=== PATIENT | female | born 1960 | race Caucasian/White ===

== ENCOUNTER 2025-07-11 08:47 | Outpatient (OUT) | payer BC, SELFPAY ==
--- OUTSIDE RECORDS SUMMARY | 2025-07-03 11:30 | XMS_ITS | Encounter Summary ---
Author Organization [facility] Address [address] [place] [id number] Care Team Providers Care Shipboard Intelligence Analyst Name Role Phone MalcolmArron streeter Edgar NEGRON Primary Care Provider [phone] Peggy Perez MD Unavailable [phone] Radha Perez HSE SPECIALIST Unavailable Unavailable Josefina Perdue PROPERTY ECONOMIST.CAMPAIGN MANAGEMENT SPECIALIST Unavailable Unavai Alona Tran RN Unavailable [phone] Unavailable [phone] Giovany Killian RN Unavailable Unava ilSarita Vallejo PROPERTY ECONOMIST.CAMPAIGN MANAGEMENT SPECIALIST Unavailable + Source Comments In the event this information is protected by the Federal Confidentiality of Alcohol and Drug AbusePatient Records regulations: The Federal rules restrict any use of the information to criminally investigate or prosecute any alcohol or drug abuse patient.[facility] Reason for Visit * Reason Comments Palliative Care Pain Encounter Details Date Type Department Care Team (Latest Contact Info) Description 07/03/2025 11:30 AM EDT Office Visit Palliative Medicine [address] [place] [address] [place] [address] Sarita Barrera, NO.CAMPAIGN MANAGEMENT SPECIALIST [address] [place] [address] Palliative care by specialist (Primary Dx); Neuropathy due to chemotherapeutic drug (HCC); Neoplasm related pain; Endometrial cancer (HCC); Chemotherapy-induced nausea; Pain in right hip Social History Tobacco Use Types Packs/Day Years Used Date Smoking Tobacco: Former Cigarettes 0.3 10 1 995 - 2004 Smokeless Tobacco: Never Tobacco Cessation:Counseling Given: Not Answered Alcohol Use Standard Drinks/Week Comments Not Currently 0 (1 standard drink = 0.6 oz pur e alcohol) PHQ-2 Answer Date Recorded PHQ-2 score 0 12/11/2022 Area Deprivation Index Answer Date Paco rded National Score (1-100), lower number is lower ri sk 53 02/18/2023 State Score (1-10), lower number is lower risk 3 02/18/2023 Data from: https://www.neighborhoodatlas.[facility]/. Last address used for calculation [id number] [facility] 02/18/2023 Comments No Sex and Gender Information Value Date Recorded Sex Assigned at Not on file Legal Sex Female 8:38 AM EST Gender Identity Not on file Sexual Orientation Not on file documented as of this encounter Last Filed Vital Signs Vital Sign Reading Time Taken Comments Blood Pressure 145/82 07/03/2025 11:27 AM EDT Pulse 63 07/03/2025 11:27 AM EDT Temperature 36.6 C (97.8 F) 07/03/2025 11:27 AM EDT Respiratory Rate 16 07/03/2025 11:2 7 AM EDT Oxygen Saturation 97% 07/03/2025 11: 27 AM EDT Inhaled Oxygen Concentration - - Weight 130.5 kg (287 lb 11.2 oz) 2024 11:27 AM EDT Height - - Body Mass Index 41.47 05/30/2025 10:39 AM EDT documented in this encounter Patient Instructions * Patient Instructions* Sarita Barrera APRN.CAMPAIGN MANAGEMENT SPECIALIST - 07/03/2025 11:50 AM EDT Sarita Barrera CNP Department of Palliative and Supportive Care Palliative Care - Specialty services in symptom management and support For questions or prescription refills, call: [phone] Wednesday - Wednesday 9AM-5PM KELLE Aaron, RN - Parts Picker Please call 3-5 days in advance for medication refills Evenings, Weekends, Holidays: [phone] (ask for palliative medicine on-call provider) For appointments, cancellations or reschedule, call: [phone] documented in this encounter Progress Notes * Sarita Barrera APRN.CNP - 07/03/2025 11:30 AM EDT PALLIATIVE MEDICINE PROGRESS NOTE SERVICE DATE: July 03, 2025 IDENTIFICATION AND INTRODUCTION: Rizwana Ruiz is a 64 year old female This visit took place In Ambulatory [facility] Facility Recording using [employer] software for draft documentation of the visit was discussed with the patient/authorized account retention representative; all questions welcomed and answered. Patient/authorized account retention representative agreed to proceed CHIEF COMPLAINT: Neoplasm Related Pain PERTINENT MEDICAL HISTORY: Rizwana Ruiz is a 63 year old female with history of trigeminal neuralgia, LSIL pap, and now PMB. Sheunderwent EMB on 09/01/2022 with results significant for grade 1 endometrial cancer. S/P bilateral salpingo-oophorectomy in 202111/04/2024 CT- OSH from ED visit New liver lesion 2cm, new paraaortic lymph nodes, subcm pulmonary nodules progressed since 2022 On Maintenance pembrolizumab C3, imaging 07/05 shows disease progression Subjective Abdominal Pain: - Rizwana Ruiz has cramping abdominal pain, with occasional nausea. - No constipation. - Pain exacerbated by certain positions, particularly side sleeping. - Uses heating pad and Oxycodone 5 mg or 10 mg PRN for pain management. - Taking meloxicam and gabapentin at night. - Concerned about Oxycodone affecting CDL license. Right hip Pain - Injected for OA and bursitis Metastatic Endometrial Cancer: - Cancer is growing again. - Undergoing treatment changes. - Total hysterectomy in the past. Anxiety - understandably upset about cancer progression and effect it has on her life REVIEW OF SYSTEMS: Modified ESAS ([place] Symptom Assessment Scale) Information Provided By: Patient Pain: Moderate Nausea: Mild Loss of Appetite: None Constipation: None Shortness of Breath: None Drowsiness: None Tiredness: None Depression: None Anxiety: Moderate Objective PHYSICAL EXAMINATION: There were no vitals taken for this visit. General Appearance: No apparent distress Skin: No jaundice and No rash Eyes: Normal and No Icterus HENT: Atraumatic and Oropharnyx clear with moist mucous membranes Neck: Grossly normal and No masses Lungs: Normal effort, no cough CV: Not examined Abdomen: Not examined Musculoskeletal: Not examined Lymphatics: Not examined Neuro: Alert and oriented to time place and person Psych: Well groomed, Affect congruent with mood, and Good eye contact DATA: Diagnostic tests reviewed for today's visit: Most recent labs and imaging results. Creatinine Date Value Ref Range Status 06/18/2025 0.87 0.58 - 0.96 mg/dL Final Estimated Creatinine Clearance: 97.7 mL/min (based on SCr of 0.87 mg/dL). Opioid Management: Indication for Opioid Prescribing: Cancer related pain ORT-OUD Score: 2 A score of 3 or higher may indicate a higher risk for future development of aberrant drug related behavior or opioid use disorder. Informed consent for chronic opiate therapy obtained and written pain agreement: On file Naloxone offered?: Previously declined, after discussing risks and benefits Course of treatment, patient's response and adherence to the prescribed treatment plan reviewed, including non-pharmacological and non-opioid treatment modalities? Yes Have any complications or exacerbations of the underlying condition causing the pain been reviewed?Yes How much does pain impede patient???s ability to engage in work or other purposeful activities, interfere with your activities of daily living, physical activity, or quality of your family life and social activities? Significantly Aberrancies in pain panel? No Any aberrant drug related behaviors since last visit? No Rationale for continuing opioid treatment: Improved comfort and function based on an ongoing functional assessment Benefits of Opioid Therapy outweigh risks: Yes Prescribed Morphine Equivalent Daily Dose (MEDD): Yes > 50 MEDD Yes, I am certified in Hospice and Palliative Care, Hematology, Medical Oncology or Pain Medicine OARRS Checked: PDMP website checked and validated. All prescriptions have been APPROPRIATELY filled. No suspiciousactivity was identified. 07/03/2025 by Sarita Barrera, SORTER [employer]UNDR[employer], PROPERTY ECONOMIST.CAMPAIGN MANAGEMENT SPECIALIST Urine Screen Lab Results Component Value Date UAMPH Negative 12/27/2024 UBARB2 Negative 12/27/2024 UBENZ Negative 12/27/2024 UCOC2 Negative 12/27/2024 UOPI Negative 12/27/2024 UOXYC Preliminary positive (A) 12/27/2024 UPCP Negative 12/27/2024 UTHC Negative 12/27/2024 UETOH <11 12/27/2024 Assessment & Plan 1. Palliative care by specialist (Z51.5) - reviewed philosophy and services 2. 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 Endometrial cancer (HCC) (C54.1) - Chronic pain and neuropathy related to endometrial cancer and chemotherapy. - Oxycodone 5 mg and 10 mg available PRN for pain; advised to use as needed. - Increase gabapentin from nightly to TID to reduce reliance on oxycodone. - Continue meloxicam at night. Take with food - Discussed potential impact of oxycodone on random drug testing and advised on PRN use. - Educated on scar tissue formation post-hysterectomy as a possible contributor to pain. 5. Chemotherapy-induced nausea (R11.0) - Occasional nausea reported. 6. Pain in right hip (M25.551) - Recent hip injection performed by Dr. Bass. - Advised to avoid lying on the affected side to prolong injection efficacy. - Continue use of heating pad and ice as needed for comfort. Some elements copied from my note on 04/03/25, the elements have been updated and all reflect current decision making from today, 07/03/2025. I spent a total of 35 minutes on the date of the service which included preparing to see the patient, [id number] patient care, completing clinical documentation, obtaining and/or reviewing separately obtained history, performing a medically appropriate examination, counseling and educating the pat ient/family/caregiver, ordering medications, tests, or procedures, communicating with other HCPs (not separately reported), independently interpreting results (not separately reported), communicatingresults to the patient/family/caregiver, and care coordination (not separately reported). Next Visit: 3 Months via virtual visit Palliative Medicine Nurse to do telephonic follow-up: Yes Elementary Assistant Teacher Services: None at this time Referral to Pointing Machine Operator: No, not at this time Sarita Barrera NP, PROPERTY ECONOMIST.CAMPAIGN MANAGEMENT SPECIALIST July 03, 2025 11:01 AM This note may have been partially generated using the [employer] voice recognition system. While every effort was made to correct voice recognition errors, kindly be aware that some errors may occasionally occur. documented in this encounter Plan of Treatment Upcoming Encounters Date Type Department Care Team ([facility] st Contact Info) Description 07/11/2025 1:30 PM EDT Visit (SP) Office Gynecology Oncology [address] [place] [address] [place] [address] Josefina Perdue APRN.CAMPAIGN MANAGEMENT SPECIALIST [address] [place], [place] [id number] PLEASE RESCHEDULE PALL MED 07/11/2025 2:00 PM EDT Infusion Center Hematology/Oncology [address] [place] [address] [place] [address] follow up keytruda 10/02/2025 2:30 PM [facility] Palliative Medicine [address] [place] [address] [place] [address] Sarita Barrera APRN.CAMPAIGN MANAGEMENT SPECIALIST [address] [place] [address] 3 MONTH VV documented as of this encounter Visit Diagnoses Diagnosis Palliative care by specialist- Primary 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 related pain Neoplasm related pain (acute) (chronic) Endometrial cancer (HCC) Malignant neoplasm of corpus uteri, except isthmus Chemotherapy-induced nausea Nausea alone Pain in right hip Pain in joint, pelvic region and thigh documented in this encounter Care Teams Shipboard Intelligence Analyst Relationship Specialty Start Date End Date Arron Vogt DO [facility] [place] [address] PCP - General Family Medicine 09/22/22 Peggy Perez MD [address] [place] [address] Physician Gynecology 10/28/22 Radha Perez LSW Senior Supplier Quality Engineer 11/04/22 Josefina Perdue, PROPERTY ECONOMIST.CAMPAIGN MANAGEMENT SPECIALIST [address] [place] [address] Nurse Practitioner Gynecology 11/30/24 Alona Stephens, RN [address] [facility] [place] [address] Specialty Parts Picker Hematology/Oncology 11/30/[address] [place] [address] [place] [address] Registered Dietitian Nutrition 12/06/24 Giovany Killian, RN Specialty Parts Picker Hospice & Palliative Medicine 03/27/25 Sarita Barrera, PROPERTY ECONOMIST.CAMPAIGN MANAGEMENT SPECIALIST [address] [place], [place] [address] [place] [address] Hospice & Palliative Medicine 03/27/25 documented as of this encounter
--- OUTSIDE RECORDS SUMMARY | 2025-07-09 16:00 | XMS_ITS | Encounter Summary ---
Author Organization [facility] Address [facility] [place] [address] Care Team Providers Care Photolithographic Stripper Name Role Phone MalcolmArron streeter Edgar NEGRON Primary Care Provider [phone] Peggy Perez MD Unavailable [phone] Radha ePrez DOCTOR PODIATRIC MEDICINE Unavailable Unavailable Josefina Perdue LOCK EXPERT.FOIL CUTTER Unavailable Unavai Alona Tran RN Unavailable [phone] Unavailable [phone] Giovany Killian RN Unavailable Unava ilSarita Vallejo LOCK EXPERT.FOIL CUTTER Unavailable + Source Comments In the event this information is protected by the Federal Confidentiality of Alcohol and Drug AbusePatient Records regulations: The Federal rules restrict any use of the information to criminally investigate or prosecute any alcohol or drug abuse patient.[facility] Encounter Details Date Type Department Care Team (Latest Contact Info) Description 07/09/2025 4:00 PM EDT [facility] Hematology/Oncology [address] [place] [address] [place] [address] Endometrial cancer (HCC); Immunotherapy encounter; Thyroid dysfunction; Papillary serous endometrial adenocarcinoma (HCC); Encounter for antineoplastic chemotherapy and immunotherapy Social History Tobacco Use Types Packs/Day Years Used Date Smoking Tobacco: Former Cigarettes 0.3 10 1 995 - 2004 Smokeless Tobacco: Never Alcohol Use Standard Drinks/Week Comments Not Currently 0 (1 standard drink = 0.6 oz pur e alcohol) PHQ-2 Answer Date Recorded PHQ-2 score 0 12/11/2022 Area Deprivation Index Answer Date Paco rded National Score (1-100), lower number is lower ri sk 53 02/18/2023 State Score (1-10), lower number is lower risk 3 02/18/2023 Data from: https://www.neighborhoodatlas.medicine.[facility].edu/. Last address used for calculation [address] [facility] 02/18/2023 Comments No Sex and Gender Information Value Date Recorded Sex Assigned at Not on file Legal Sex Female 8:38 AM EST Gender Identity Not on file Sexual Orientation Not on file documented as of this encounter Plan of Treatment Upcoming Encounters Date Type Department Care Team (Late st Contact Info) Description 07/11/2025 1:30 PM EDT Visit (SP) Office Gynecology Oncology [address] [place] [address] [place] [address] Josefina Perdue APRN.FOIL CUTTER [address] [place] [address] PLEASE RESCHEDULE PALL MED 07/11/2025 2:00 PM EDT [facility] Hematology/Oncology [address] [place] [address] [place] [address] follow up keytruda 10/02/2025 2:30 PM EST [facility] Palliative Medicine [address] [place] [address] [place] [address] Sarita Barrera, LOCK EXPERT.FOIL CUTTER [address] [place] [address] 3 MONTH VV documented as of this encounter Procedures Procedure Name Priority Date/Time Associated Diagnosis Comments MAGNESIUM BLD Routine 07/09/2025 3:45 PM EDT Endometrial cancer (HCC) TSH BLD Routine 07/09/2025 3:45 PM EDT Immunotherapy encounter Endometrial cancer (HCC) Thyroid dysfunction T4 FREE/FREE THYROX Routine 07/09/2025 3 :45 PM EDT Immunotherapy encounter Endometrial cancer (HCC) Thyroid dysfunction T3 FREE BLD Routine 07/09/2025 3:45 PM EDT Immunotherapy encounter Endometrial cancer (HCC) Thyroid dysfunction LIPASE BLD Routine 07/09/2025 3:45 PM EDT Papillary serous endometrial adenocarcinoma (HCC) Encounter for antineoplastic chemotherapy and immunotherapy CORTISOL BLD Routine 07/09/2025 3:45 PM EDT Immunotherapy encounter Endometrial cancer (HCC) COMPREHENSIVE METABOLIC PANEL Routine 07/09/2025 3:45 PM EDT Endometrial cancer (HCC) CBC + DIFF Routine 07/09/2025 3:45 PM EDT Endometrial cancer (HCC) CA 125 BLD Routine 07/09/2025 3:45 PM EDT Endometrial cancer (HCC) AMYLASE BLD Routine 07/09/2025 3:45 PM EDT Papillary serous endometrial adenocarcinoma (HCC) Encounter for antineoplastic chemotherapy and immunotherapy documented in this encounter Results * LIPASE (07/09/2025 3:45 PM EDT) Lipase 30 16 - 61 U/L 07/10/2025 12:33 PM EDT [facility] Blood BLOOD SPECIMEN / Unknown Port - Continuous Access Dev. / Unknown 07/09/2025 3:45 PM EDT 07/09/2025 3:47 PM EDT us Josefina Perdue LOCK EXPERT.FOIL CUTTER LABORATORY Final R esult [facility] [address] [place] [id number], [place] * AMYLASE (07/09/2025 3:45 PM EDT) Amylase 75 30 - 104 U/L 07/10/2025 12:33 PM EDT [facility] Blood BLOOD SPECIMEN / Unknown Port - Continuous Access Dev. / Unknown 07/09/2025 3:45 PM EDT 07/09/2025 3:47 PM EDT us Josefina Perdue LOCK EXPERT.FOIL CUTTER LABORATORY Final R esult Performing Organization Address City/[facility]/ZIP Co de Phone Number [facility] [address] [place] [address], [place] * (ABNORMAL) CORTISOL, SERUM (07/09/2025 3:45 PM EDT) Cortisol 2.0(L) 4.8 - 19.5 ug/dL 07/10/2025 12:40 PM EDT [facility] Comment: Provided reference range is from 6-10 AM sample collection time. Cortisol Reference Range: 6-10 AM = 4.8-19.5 ug/dL, 4-8 PM = 2.5-11.9 ug/dL Blood BLOOD SPECIMEN / Unknown Port - Continuous Access Dev. / Unknown 07/09/2025 3:45 PM EDT 07/09/2025 3:47 PM EDT us Peggy Perez MD LABORATORY Final R esult [facility] [address] [place] [address], [place] * T3, FREE (07/09/2025 3:45 PM EDT) Free T3 2.5 2.3 - 4.1 pg/mL 07/10/2025 3:10 PM EDT [facility] Blood BLOOD SPECIMEN / Unknown Port - Continuous Access Dev. / Unknown 07/09/2025 3:45 PM EDT 07/09/2025 3:47 PM EDT Peggy Perez MD LABORATORY Final R esult [facility] [address] [place] [address], [place] * (ABNORMAL) T4 FREE/FREE THYROXINE (07/09/2025 3:45 PM EDT) Free T4 0.8(L) 0.9 - 1.7 ng/dL 07/10/2025 3:10 PM EDT [facility] Blood BLOOD SPECIMEN / Unknown Port - Continuous Access Dev. / Unknown 07/09/2025 3:45 PM EDT 07/09/2025 3:47 PM EDT Peggy Perez MD LABORATORY Final R esult [facility] [address] [place] [address], [place] * THYROID STIMULATING HORMONE (07/09/2025 3:45 PM EDT) TSH 3.940 0.270 - 4.200 mIU/L 07/10/2025 3:10 PM EDT [facility] Blood BLOOD SPECIMEN / Unknown Port - Continuous Access Dev. / Unknown 07/09/2025 3:45 PM EDT 07/09/2025 3:47 PM EDT Peggy Perez MD LABORATORY Final R esult [facility] [address] [place] [id number], [place] * CA 125 (07/09/2025 3:45 PM EDT) CA 125 15 <39 U/mL 07/10/2025 12:55 PM EDT [facility] Comment: CA 125 test methodology used is the Electrochemiluminescence Immunoassay by [employer]. Results obtained with different methods or kits cannot be used interchangeably. The reference interval is based on the 95th percentile of 240 apparently healthy premenopausal and postmenopausal women. At a cutoff value of 65 U/mL, the test sensitivity to distinguish ovarian carcinoma (FIGO stage I to IV) versus benign gynecological disease is 79%, with a specificity of 82%. Reference: Cancer Antigen 125 (CA 125 II) [package insert V 1.0 Khmer]. [employer] [facility], [place], [place] (July 2015) Blood BLOOD SPECIMEN / Unknown Port - Continuous Access Dev. / Unknown 07/09/2025 3:45 PM EDT 07/09/2025 3:47 PM EDT us Josefina Perdue LOCK EXPERT.FOIL CUTTER LABORATORY Final R esult [facility] [address] [place] [address], * (ABNORMAL) COMPLETE BLOOD COUNT AND DIFFERENTIAL (07/09/2025 3:45 PM EDT) WBC 6.56 3.70 - 11.00 k/uL 07/09/2025 3:50 PM EDT [facility] RBC 3.77(L) 3.90 - 5.20 m/uL 07/09/2025 3:50 PM EDT [facility] Hemoglobin 11.7 11.5 - 15.5 g/dL 07/09/2025 3:50 PM EDT [facility] Hematocrit 36.2 36.0 - 46.0 % 07/09/2025 3:50 PM EDT [facility] MCV 96.0 80.0 - 100.0 fL 07/09/2025 3:50 PM EDT [facility] MCH 31.0 26.0 - 34.0 pg 07/09/2025 3:50 PM EDT [facility] MCHC 32.3 30.5 - 36.0 g/dL 07/09/2025 3:50 PM EDT [facility] RDW-CV 13.8 11.5 - 15.0 % 07/09/2025 3:50 PM EDT [facility] Platelet Count 219 150 - 400 k/uL 07/09/2025 3:50 PM EDT [facility] MPV 8.9(L) 9.0 - 12.7 fL 07/09/2025 3:50 PM EDT [facility] Neutrophils % 67.4 % 07/09/2025 3:50 PM EDT [facility] Abs Neut 4.42 1.45 - 7.50 k/uL 07/09/2025 3:50 PM EDT [facility] Lymphocytes % 21.5 % 07/09/2025 3:50 PM EDT [facility] Abs Lymph 1.41 1.00 - 4.00 k/uL 07/09/2025 3:50 PM EDT [facility] Monocytes % 8.8 % 07/09/2025 3:50 PM EDT [facility] Abs Luquillo 0.58 <0.87 k/uL 07/09/2025 3:50 PM EDT [facility] Eosinophils % 1.5 % 07/09/2025 3:50 PM EDT [facility] Abs Eosin 0.10 <0.46 k/uL 07/09/2025 3:50 PM EDT [facility] Basophils % 0.5 % 07/09/2025 3:50 PM EDT [facility] Abs Baso 0.03 <0.11 k/uL 07/09/2025 3:50 PM EDT [facility] Immature Granulocytes % 0.3 % 07/09/2025 3:50 PM EDT [facility] Abs Immature Gran <0.03 <0.10 k/uL 07/09/2025 3:50 PM EDT [facility] NRBC 0.0 /100 WBC 07/09/2025 3:50 PM EDT [facility] Absolute nRBC <0.01 <0.01 k/uL 07/09/2025 3:50 PM EDT [facility] Diff Type Auto 07/09/2025 3:50 PM EDT [facility] Blood BLOOD SPECIMEN / Unknown Port - Continuous Access Dev. / Unknown 07/09/2025 3:45 PM EDT 07/09/2025 3:47 PM EDT us Josefina Perdue LOCK EXPERT.FOIL CUTTER LABORATORY Final R esult [facility] [address] [place] [address] * (ABNORMAL) COMPREHENSIVE METABOLIC PANEL (07/09/2025 3:45 PM EDT) Protein, Total 7.0 6.3 - 8.0 g/dL 07/10/2025 12:38 PM EDT [facility] Albumin 4.1 3.9 - 4.9 g/dL 07/10/2025 12:38 PM EDT [facility] Calcium, Total 9.4 8.5 - 10.2 mg/dL 07/10/2025 12:38 PM EDT [facility] Bilirubin, Total 0.5 0.2 - 1.3 mg/dL 07/10/2025 12:38 PM EDT [facility] Alkaline Phosphatase 91 34 - 123 U/L 07/10/2025 12:38 PM EDT [facility] AST 24 13 - 35 U/L 07/10/2025 12:38 PM EDT [facility] ALT 10 7 - 38 U/L 07/10/2025 12:38 PM EDT [facility] Glucose 75 74 - 99 mg/dL 07/10/2025 12:38 PM EDT [facility] Comment: The [place] Diabetes Association (ADA) provides guidance for cutoff values for fasting glucose and random glucose. The ADA defines fasting as no caloric intake for at least 8 hours. Fasting plasma glucose results between 100 to 125 mg/dL indicate increased risk for diabetes (prediabetes). Fasting plasma glucose results greater than or equal to 126 mg/dL meet the criteria for diagnosis of diabetes. In the absence of unequivocal hyperglycemia, results should be confirmed by repeat testing. In a patient with classic symptoms of hyperglycemia or hyperglycemic crisis, random plasma glucose results greater than or equal to 200 mg/dL meet the criteria for diagnosis of diabetes. Reference: Standards of Medical Care in Diabetes 2016, [place] [employer] Association. Diabetes Care. 2016.39(Suppl 1). BUN 28(H) 7 - 21 mg/dL 07/10/2025 12:38 PM EDT [facility] Creatinine 1.06(H) 0.58 - 0.96 mg/dL 07/10/2025 12:38 PM EDT [facility] Sodium 140 136 - 144 mmol/L 07/10/2025 12:38 PM EDT [facility] Potassium 5.0 3.7 - 5.1 mmol/L 07/10/2025 12:38 PM EDT [facility] Chloride 104 98 - 107 mmol/L 07/10/2025 12:38 PM EDT [facility] CO2 23 22 - 30 mmol/L 07/10/2025 12:38 PM EDT [facility] Anion Gap 13 8 - 15 mmol/L 07/10/2025 12:38 PM EDT [facility] Estimated Glomerular Filtration Rate 59(L) >=60 mL/min/1. 73m 07/10/2025 12:38 PM T [facility] Comment:Estimated Glomerular Filtration Rate (eGFR) is calculated using the 2020 CKD-EPI creatinine equation. This equation utilizes serum creatinine, sex, and age as parameters. The creatinine assay has traceable calibration to isotope dilution- mass spectrometry. Refer to KDIGO guidelines for clinical interpretation. In patients with unstable renal function, e.g. those with acute kidney injury, the eGFR may not accurately reflect actual GFR. Blood BLOOD SPECIMEN / Unknown Port - Continuous Access Dev. / Unknown 07/09/2025 3:45 PM EDT 07/09/2025 3:47 PM EDT Josefina Perdue LOCK EXPERT.FOIL CUTTER LABORATORY Final R esult [facility] [address] [facility] [address] [address], [place] * MAGNESIUM (07/09/2025 3:45 PM EDT) Magnesium 2.0 1.7 - 2.3 mg/dL 07/10/2025 12:38 PM EDT [facility] Blood BLOOD SPECIMEN / Unknown Port - Continuous Access Dev. / Unknown 07/09/2025 3:45 PM EDT 07/09/2025 3:47 PM EDT Josefina Maribell LOCK EXPERT.FOIL CUTTER LABORATORY Final R esult Performing Organization Address City/[facility]/ZIP Co de Phone Number [facility] [address] [address], documented in this encounter Visit Diagnoses Diagnosis Endometrial cancer (HCC) Malignant neoplasm of corpus uteri, except isthmus Immunotherapy encounter Thyroid dysfunction Unspecified disorder of thyroid Papillary serous endometrial adenocarcinoma (HCC) Malignant neoplasm of corpus uteri, except isthmus Encounter for antineoplastic chemotherapy and immunotherapy Encounter for antineoplastic chemotherapy documented in this encounter Care Teams Photolithographic Stripper Relationship Specialty Start Date End Date Arron Vogt DO [address] [place] [address] PCP - General Family Medicine 09/22/22 Peggy Perez MD [address] [place] [address] Physician Gynecology 10/28/22 Radha Perez LSW Painter Helper 11/04/22 Josefina Perdue APRN.CNP [address] [place] [address] Nurse Practitioner Gynecology 11/30/24 Alona Stephens, RN [address] [place] [address] [place] [address] Specialty Mine Production Engineer Hematology/Oncology 11/30/[address] [place] [address] Registered Dietitian Nutrition 12/06/24 Giovany Killian, RN Specialty Mine Production Engineer Hospice & Palliative Medicine 03/27/25 Sarita Barrera APRN.FOIL CUTTER [address] [place] [address] Hospice & Palliative Medicine 03/27/25 documented as of this encounter
--- OUTSIDE RECORDS SUMMARY | 2025-07-11 08:56 | XMS_ITS | Encounter Summary ---
Author Organization [facility] Address [address] [place] [id number] Care Team Providers Care Automobile Painter Name Role Phone MalcolmArron streeter Edgar NEGRON Primary Care Provider [phone] Peggy Perez MD Unavailable [phone] Radha Perez DRY CLEANER APPRENTICE Unavailable Unavailable Josefina Perdue STONE SPREADER OPERATOR.HAND MITER OPERATOR Unavailable Unavai Alona Tran RN Unavailable [phone] Unavailable [phone] Giovany Killian RN Unavailable Unava ilSarita Vallejo STONE SPREADER OPERATOR.HAND MITER OPERATOR Unavailable + Source Comments In the event this information is protected by the Federal Confidentiality of Alcohol and Drug AbusePatient Records regulations: The Federal rules restrict any use of the information to criminally investigate or prosecute any alcohol or drug abuse patient.[facility] Encounter Details Date Type Department Care Team (Late st Contact Info) Description 04/03/2025 Patient Msg Palliative Medicine [address] [place] [address] [place] [address] Sarita Barrera, STONE SPREADER OPERATOR.HAND MITER OPERATOR [address] [place] [id number] Appointment Cancellation Request Social History Tobacco Use Types Packs/Day Years [...] is lower risk 3 02/18/2023 Data from: https://www.neighborhoodatlas.medicine.[facility]/. Last address used for calculation [address] [facility] 02/18/2023 Comments No Sex and Gender Information Value Date Recorded Sex Assigned at Not on file Legal Sex Female 8:38 AM EST Gender Identity Not on file Sexual Orientation Not on file documented as of this encounter Plan of Treatment Upcoming Encounters Date Type Department Care Team (Late st Contact Info) Description 07/11/2025 1:30 PM EDT Visit (SP) Office Gynecology Oncology [address] [place] [place] [address] [place] [address] Josefina Perdue STONE SPREADER OPERATOR.HAND MITER OPERATOR [address] [place] [address] PLEASE RESCHEDULE PALL MED 07/11/2025 2:00 PM EDT Infusion Center Hematology/Oncology [address] [place] [place] [address] [place] [address] follow up keytruda 10/02/2025 2:30 PM EST [facility] Palliative Medicine [address] [facility] [place] [address] Sarita Barrera, STONE SPREADER OPERATOR.HAND MITER OPERATOR [address] [place] [address] 3 MONTH VV documented as of this encounter Visit Diagnoses Not on filedocumented in this encounter Care Teams Automobile Painter Relationship Specialty Start Date End Date Arron Vogt DO [address] [place] [address] PCP - General Family Medicine 09/22/22 Peggy Perez MD [address] [place] [address] Physician Gynecology 10/28/22 Radha Perez LSW Drum Stenciler 11/04/22 Josefina Perdue, STONE SPREADER OPERATOR.HAND MITER OPERATOR [address] [place] [address] Nurse Practitioner Gynecology 11/30/24 Alona Stephens RN [address] [facility] [place] [place] [address] Specialty Religious Studies Professor Hematology/Oncology 11/30/[address] [facility] [place] [place] [address] Registered Dietitian Nutrition 12/06/24 Giovany Killian, RN Specialty Religious Studies Professor Hospice & Palliative Medicine 03/27/25 Sarita Barrera, STONE SPREADER OPERATOR.HAND MITER OPERATOR [address] [facility] [place] [address] Hospice & Palliative Medicine 03/27/25 documented as of this encounter
--- OUTSIDE RECORDS SUMMARY | 2025-07-11 08:56 | XMS_ITS | Encounter Summary ---
Author Organization [facility] Address [facility] [place] [address] Care Team Providers Care Printing Plate Setter Name Role Phone MalcolmArron streeter Edgar NEGRON Primary Care Provider [phone] Peggy Perez MD Unavailable [phone] Radha Perez REPTILE FARMER Unavailable Unavailable Josefina Perdue DIRECTOR OF CAREER SERVICES.BROKE BEATER MACHINE OPERATOR Unavailable Unavai Alona Tran RN Unavailable [phone] Unavailable [phone] Giovany Killian RN Unavailable Unava ilSarita Vallejo DIRECTOR OF CAREER SERVICES.BROKE BEATER MACHINE OPERATOR Unavailable + Source Comments In the event this information is protected by the Federal Confidentiality of Alcohol and Drug AbusePatient Records regulations: The Federal rules restrict any use of the information to criminally investigate or prosecute any alcohol or drug abuse patient.[facility] Encounter Details Date Type Department Care Team (Late st Contact Info) Description 02/07/2025 Patient Msg Admitting [address] [place] [address] [place] [address] Provider, [facility] Bronchscopy Instructions Social History Tobacco Use Types Packs/Day Years [...] is lower risk 3 02/18/2023 Data from: https://www.neighborhoodatlas.medicine.[facility].edu/. Last address used for calculation [address] [facility] 02/18/2023 Comments No Sex and Gender Information Value Date Recorded Sex Assigned at Not on file Legal Sex Female 8:38 AM EST Gender Identity Not on file Sexual Orientation Not on file documented as of this encounter Plan of Treatment Upcoming Encounters Date Type Department Care Team (Late st Contact Info) Description 07/11/2025 1:30 PM EDT Visit (SP) Office Gynecology Oncology [address] [place] [address] Josefina Perdue APRN.BROKE BEATER MACHINE OPERATOR [address] [place], [place] [id number] PLEASE RESCHEDULE PALL MED 07/11/2025 2:00 PM EDT Infusion Center Hematology/Oncology [address] [place] [address] follow up keytruda 10/02/2025 2:30 PM EST [facility] Palliative Medicine [address] [place] [address] Sarita Barrera, DIRECTOR OF CAREER SERVICES.BROKE BEATER MACHINE OPERATOR [address] [place], [place] [id number] 3 MONTH VV documented as of this encounter Visit Diagnoses Not on filedocumented in this encounter Care Teams Printing Plate Setter Relationship Specialty Start Date End Date Arron Vogt DO [facility] [address] [place], [place] [id number] PCP - General Family Medicine 09/22/22 Peggy Perez MD [address] [place] [address] Physician Gynecology 10/28/22 Radha Perez LSW Quarter Trimmer 11/04/22 Josefina Perdue APRN.BROKE BEATER MACHINE OPERATOR [address] [place] [address] Nurse Practitioner Gynecology 11/30/24 Alona Stephens RN [address] [place] [address] Specialty Health And Safety Specialist Hematology/Oncology 11/30/[address] [place] [address] Registered Dietitian Nutrition 12/06/24 Giovany Killian, RN Specialty Health And Safety Specialist Hospice & Palliative Medicine 03/27/25 Sarita Barrera, DIRECTOR OF CAREER SERVICES.BROKE BEATER MACHINE OPERATOR [address] [place] [address] Hospice & Palliative Medicine 03/27/25 documented as of this encounter
--- OUTSIDE RECORDS SUMMARY | 2025-07-11 08:56 | XMS_ITS | Encounter Summary ---
Author Organization [facility] Address [facility] [place] [address] Care Team Providers Care Resident Advisor Name Role Phone MalcolmArron streeter Edgar NEGRON Primary Care Provider [phone] Peggy Perez MD Unavailable [phone] Radha Perez LAUNDRY AIDE Unavailable Unavailable Josefina Perdue ENGLISH DIVISION CHAIR.TIME CLOCK REPAIRER Unavailable Unavai Alona Tran RN Unavailable [phone] Unavailable [phone] Giovany Killian RN Unavailable Unava ilSarita Vallejo ENGLISH DIVISION CHAIR.TIME CLOCK REPAIRER Unavailable + Source Comments In the event this information is protected by the Federal Confidentiality of Alcohol and Drug AbusePatient Records regulations: The Federal rules restrict any use of the information to criminally investigate or prosecute any alcohol or drug abuse patient.[facility] Encounter Details Date Type Department Care Team (Late st Contact Info) Description 05/01/2025 Results Follow-Up Gynecology Oncology [address] [place] [address] Josefina Perdue ENGLISH DIVISION CHAIR.TIME CLOCK REPAIRER [address] [place] [address] Social History Tobacco Use Types Packs/Day Years [...] is lower risk 3 02/18/2023 Data from: https://www.neighborhoodatlas.medicine.[facility].edu/. Last address used for calculation [address] 02/18/2023 Comments No Sex and Gender Information Value Date Recorded Sex Assigned at Not on file Legal Sex Female 8:38 AM EST Gender Identity Not on file Sexual Orientation Not on file documented as of this encounter Plan of Treatment Upcoming Encounters Date Type Department Care Team (Late st Contact Info) Description 07/11/2025 1:30 PM EDT Visit (SP) Office Gynecology Oncology [address] [place] [address] [place] [address] Josefina Perdue, ENGLISH DIVISION CHAIR.TIME CLOCK REPAIRER [address] [place] [address] PLEASE RESCHEDULE PALL MED 07/11/2025 2:00 PM EDT Infusion Center Hematology/Oncology [address] [place] [address] [place] [address] follow up keytruda 10/02/2025 2:30 PM EST [facility] Palliative Medicine [address] [facility] [place] [address] Sarita Barrera, ENGLISH DIVISION CHAIR.TIME CLOCK REPAIRER [address] [place] [address] 3 MONTH VV documented as of this encounter Visit Diagnoses Not on filedocumented in this encounter Care Teams Resident Advisor Relationship Specialty Start Date End Date Arron Vogt DO [address] [place] [address] PCP - General Family Medicine 09/22/22 Peggy Perez MD [address] [place] [address] Physician Gynecology 10/28/22 Radha Perez LSW Salesperson Parts 11/04/22 Josefina Perdue, ENGLISH DIVISION CHAIR.TIME CLOCK REPAIRER [address] [place] [address] Nurse Practitioner Gynecology 11/30/24 Alona Stephens, RN [address] [facility] [place] [address] Specialty Rivet Hole Puncher Hematology/Oncology 11/30/[address] [facility] [place] [address] Registered Dietitian Nutrition 12/06/24 Giovany Killian, RN Specialty Rivet Hole Puncher Hospice & Palliative Medicine 03/27/25 Sarita Barrera, ENGLISH DIVISION CHAIR.TIME CLOCK REPAIRER [address] [facility] [place] [address] Hospice & Palliative Medicine 03/27/25 documented as of this encounter
--- OUTSIDE RECORDS SUMMARY | 2025-07-11 08:56 | XMS_ITS | Encounter Summary ---
Author Organization [facility] Address [address] [place] [address] Care Team Providers Care Sheet Metal Fabricator Name Role Phone MalcolmArron streeter Edgar NEGRON Primary Care Provider [phone] Peggy Perez MD Unavailable [phone] Jazlyn Wells HOGSHEAD MAT ASSEMBLER.SCRIBING MACHINE OPERATOR Unavailable [phone] Radha Perez Unavailable Unavailable Josefina Perdue HOGSHEAD MAT ASSEMBLER.SCRIBING MACHINE OPERATOR Unavailable Unavai Alona Tran RN Unavailable [phone] Unavailable [phone] Giovany Killian RN Unavailable Unava ilSarita Vallejo HOGSHEAD MAT ASSEMBLER.SCRIBING MACHINE OPERATOR Unavailable + Source Comments In the event this information is protected by the Federal Confidentiality of Alcohol and Drug AbusePatient Records regulations: The Federal rules restrict any use of the information to criminally investigate or prosecute any alcohol or drug abuse patient.[facility] Encounter Details Date Type Department Care Team (Late st Contact Info) Description 11/14/2024 [place] [address] Provider, [facility] Actionable Imaging Result Notification Patient Outreach Social History Tobacco Use Types Packs/Day Years Used Date Smoking Tobacco: Former Cigarettes 0.3 10 1 5 - 2004 Smokeless Tobacco: Never Alcohol Use Standard Drinks/Week Comments Not Currently 0 (1 standard drink = 0.6 oz pur e alcohol) PHQ-2 Answer Date Recorded PHQ-2 score 0 12/11/2022 Area Deprivation Index Answer Date Paco rded National Score (1-100), lower number is lower ri sk 53 02/18/2023 State Score (1-10), lower number is lower risk 3 02/18/2023 Data from: https://www.neighborhoodatlas.medicine.[facility].edu/. Last address used for calculation [address] [facility] 02/18/2023 Comments No Sex and Gender Information Value Date Recorded Sex Assigned at Not on file Legal Sex Female 8:38 AM EST Gender Identity Not on file Sexual Orientation Not on file documented as of this encounter Plan of Treatment Upcoming Encounters Date Type Department Care Team (Late st Contact Info) Description 07/11/2025 1:30 PM EDT Visit (SP) Office Gynecology Oncology [address] [place] [address] Josefina Perdue, HOGSHEAD MAT ASSEMBLER.SCRIBING MACHINE OPERATOR [address] [place] [address] PLEASE RESCHEDULE PALL MED 07/11/2025 2:00 PM EDT Infusion Center Hematology/Oncology [address] [place] [address] follow up keytruda 10/02/2025 2:30 PM EST [facility] Palliative Medicine [address] [place] [address] Sarita Barrera, HOGSHEAD MAT ASSEMBLER.SCRIBING MACHINE OPERATOR [address] [place] [address] 3 MONTH VV documented as of this encounter Visit Diagnoses Not on filedocumented in this encounter Care Teams Sheet Metal Fabricator Relationship Specialty Start Date End Date Arron Vogt DO [address] [place] [address] PCP - General Family Medicine 09/22/22 Peggy Perez MD [address] [place] [address] Physician Gynecology 10/28/22 Jazlyn Wells HOGSHEAD MAT ASSEMBLER.SCRIBING MACHINE OPERATOR [address] [place] [address] Nurse Practitioner Gynecology 10/28/22 11/29/24 Radha Perez LSW Network Operations Lead 11/04/22 Josefina Perdue, NO.SCRIBING MACHINE OPERATOR [address] [place] [address] Nurse Practitioner Gynecology 11/30/24 Alona Stephens RN [address] [place] [address] [place] [address] Specialty Lunchroom Operator Hematology/Oncology 11/30/[address] [place] [address] [place] [address] Registered Dietitian Nutrition 12/06/24 Giovnay Killian, RN Specialty Lunchroom Operator Hospice & Palliative Medicine 03/27/25 Sarita Barrera, HOGSHEAD MAT ASSEMBLER.SCRIBING MACHINE OPERATOR [address] [place] [address] [place] [phone] Hospice & Palliative Medicine 03/27/25 documented as of this encounter
--- OUTSIDE RECORDS SUMMARY | 2025-07-11 08:56 | XMS_ITS | Encounter Summary ---
Author Organization [facility] Address [address] [facility] [place] [address] Care Team Providers Care Shorthand Teacher Name Role Phone Arron Vogt DO Primary Care Provider [phone] Nicolás Moss Unavailable Arron Vogt DO Primary Care Provider [phone] Encounter Details Date Type Department Care Team (Late st Contact Info) Description 07/22/2023 Abstract [facility] Otolaryngology [address] [place] [phone] Dominik Escamilla DO [address] [place] [address] Social History Tobacco Use Types Packs/Day Years Used Date Smoking Tobacco: Former Cigarettes 0.3 10 0 03/11/1996 - 03/11/2006 Smokeless Tobacco: Never Alcohol Use Standard Drinks/Week Comments Not Currently 0 (1 standard drink = 0.6 oz pure alcohol) Caffeine:1-2 cups per day tea Comments Unknown Sex and Gender Information Value Date Recorded Sex Assigned at Not on file Legal Sex Female 6:40 PM EDT Gender Identity Not on file Sexual Orientation Not on file COVID-19 Exposure Response Date Recorded In the last 10 days, have yo u been in contact with someone who was confirmed or suspected to have Coronavirus/COVID-19? No / Unsure 07/16/2023 9:21 AM EDT documented as of this encounter Plan of Treatment Upcoming Encounters Date Type Department Care Team (Late st Contact Info) Description 08/08/2025 8:45 AM EDT Office Visit [facility] [address] [place] [phone] Jeanmarie Ellis DO [address] [email or web address] [place] [address] documented as of this encounter Visit Diagnoses Not on filedocumented in this encounter Care Teams Shorthand Teacher Relationship Specialty Start Date End Date Arron Vogt DO PCP - General 06/11/23 06/19/25 Nicolás Moss PA [address] [place] [address] PCP - Medical [place] [employer] 10/11/22 05/23/24 Arron Vogt DO [address] [place] [id number] PCP - General Family Medicine 06/20/25 documented as of this encounter
--- OUTSIDE RECORDS SUMMARY | 2025-07-11 08:56 | XMS_ITS | Encounter Summary ---
Author Organization [facility] Address [address] [place] [address] Care Team Providers Care Brass Sorter Name Role Phone MalcolmArron streeter Edgar NEGRON Primary Care Provider [phone] Peggy Perez MD Unavailable [phone] Radha Perez MECHANICAL MANAGER Unavailable Unavailable Josefina Perdue DIGITAL MARKETING ASSOCIATE.GEOTECHNICAL FIELD TECHNICIAN Unavailable Unavai Alona Tran RN Unavailable [phone] Unavailable [phone] Giovany Killian RN Unavailable Unava ilSarita Vallejo DIGITAL MARKETING ASSOCIATE.GEOTECHNICAL FIELD TECHNICIAN Unavailable + Source Comments In the event this information is protected by the Federal Confidentiality of Alcohol and Drug AbusePatient Records regulations: The Federal rules restrict any use of the information to criminally investigate or prosecute any alcohol or drug abuse patient.[facility] Encounter Details Date Type Department Care Team (Late st Contact Info) Description 06/21/2025 Patient [facility] HB-3 [address] [place] [address] Opal Colvin, [address] [place] [address] Lenvima prescription Social History Tobacco Use Types Packs/Day Years [...] is lower risk 3 02/18/2023 Data from: https://www.neighborhoodatlas.medicine.[facility]/. Last address used for calculation [address] [facility] 02/18/2023 Comments No Sex and Gender Information Value Date Recorded Sex Assigned at Not on file Legal Sex Female 8:38 AM EST Gender Identity Not on file Sexual Orientation Not on file documented as of this encounter Plan of Treatment Upcoming Encounters Date Type Department Care Team (Late st Contact Info) Description 07/11/2025 1:30 PM EDT Visit (SP) Office Gynecology Oncology [address] [place] [address] [place] [address] Josefina Perdue APRN.GEOTECHNICAL FIELD TECHNICIAN [address] [place], [place] [id number] PLEASE RESCHEDULE PALL MED 07/11/2025 2:00 PM EDT Infusion Center Hematology/Oncology [address] [place] [address] [place] [address] follow up keytruda 10/02/2025 2:30 PM EST [facility] Palliative Medicine [address] [place] [address] [place] [address] Sarita Barrera, DIGITAL MARKETING ASSOCIATE.GEOTECHNICAL FIELD TECHNICIAN [address] [place] [address] 3 MONTH VV Scheduled Orders Name Type Priority Associated Diagnoses Orde r Schedule UA DIP, URINE (POC) Lab Routine Papillary serous endometrial adenocarcinoma (HCC) Encounter for antineoplastic chemotherapy and immunotherapy Every 3 weeks for 15 Occurrences starting 06/27/2025 until 06/25/2026 AMYLASE Lab Routine Papillary serous endometrial adenocarcinoma (HCC) Encounter for antineoplastic chemotherapy and immunotherapy Every 3 weeks for 15 Occurrences starting 06/27/2025 until 06/27/2026, 1 completed LIPASE Lab Routine Papillary serous endometrial adenocarcinoma (HCC) Encounter for antineoplastic chemotherapy and immunotherapy Every 3 weeks for 15 Occurrences starting 06/27/2025 until 06/27/2026, 1 completed documented as of this encounter Results * LIPASE (07/09/2025 3:45 PM EDT) Lipase 30 16 - 61 U/L 07/10/2025 12:33 PM EDT [facility] Blood BLOOD SPECIMEN / Unknown Port - Continuous Access Dev. / Unknown 07/09/2025 3:45 PM EDT 07/09/2025 3:47 PM EDT Josefina Perdue DIGITAL MARKETING ASSOCIATE.GEOTECHNICAL FIELD TECHNICIAN LABORATORY Final R esult [facility] [address] [place] [address], * AMYLASE (07/09/2025 3:45 PM EDT) Amylase 75 30 - 104 U/L 07/10/2025 12:33 PM EDT [facility] Blood BLOOD SPECIMEN / Unknown Port - Continuous Access Dev. 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 corpus uteri, except isthmus Encounter for antineoplastic chemotherapy and immunotherapy Encounter for antineoplastic chemotherapy documented in this encounter Care Teams Brass Sorter Relationship Specialty Start Date End Date rAron Vogt DO [address] [place] [address] PCP - General Family Medicine 09/22/22 Peggy Perez MD [address] [place] [address] Physician Gynecology 10/28/22 Radha Perez LSW Scouring Machine Operator 11/04/22 Josefina Perdue, NO.GEOTECHNICAL FIELD TECHNICIAN [address] [place] [address] Nurse Practitioner Gynecology 11/30/24 Alona Stephens, RN [address] [place] [address] [place] [address] Specialty Deep Well Contractor Hematology/Oncology 11/30/[address] [place] [address] [place] [address] Registered Dietitian Nutrition 12/06/24 Giovany Killian, RN Specialty Deep Well Contractor Hospice & Palliative Medicine 03/27/25 Sarita Barrera, DIGITAL MARKETING ASSOCIATE.GEOTECHNICAL FIELD TECHNICIAN [address] [place] [address] [place] [address] Hospice & Palliative Medicine 03/27/25 documented as of this encounter
--- OUTSIDE RECORDS SUMMARY | 2025-07-11 08:56 | XMS_ITS | Encounter Summary ---
Author Organization [facility] Address [address] [place] [address] Care Team Providers Care Termite Renewal Inspector Name Role Phone MalcolmArron streeter Edgar NEGRON Primary Care Provider [phone] Peggy Perez MD Unavailable [phone] Radha Perez BRAKE RELINER Unavailable Unavailable Josefina Perdue PRIMER BOXER.BUILDING MAINTENANCE REPAIRER Unavailable Unavai Alona Tran RN Unavailable [phone] Unavailable [phone] Giovany Killian RN Unavailable Unava ilSarita Vallejo PRIMER BOXER.BUILDING MAINTENANCE REPAIRER Unavailable + Source Comments In the event this information is protected by the Federal Confidentiality of Alcohol and Drug AbusePatient Records regulations: The Federal rules restrict any use of the information to criminally investigate or prosecute any alcohol or drug abuse patient.[facility] Encounter Details Date Type Department Care Team (Late st Contact Info) Description 04/18/2025 Patient [facility] [address] [place] [id number] [place], Gavino Nash, [place] [address] [place] [address] Genetic Test Result Social History Tobacco Use Types Packs/Day Years [...] is lower risk 3 02/18/2023 Data from: https://www.neighborhoodatlas.medicine.[facility]/. Last address used for calculation [address] [facility] 02/18/2023 Comments No Sex [...] PM EDT Visit (SP) Office Gynecology Oncology [address] [place] [address] [place] [address] Josefina Perdue, PRIMER BOXER.BUILDING MAINTENANCE REPAIRER [address] [place] [address] PLEASE RESCHEDULE PALL MED 07/11/2025 2:00 PM EDT Infusion Center Hematology/Oncology [address] [facility] [address] follow up keytruda 10/02/2025 2:30 PM EST [facility] Palliative Medicine [address] [facility] [address] Sarita Barrera, PRIMER BOXER.BUILDING MAINTENANCE REPAIRER [address] [place] [id number] 3 MONTH VV documented as of this encounter Visit Diagnoses Not on filedocumented in this encounter Care Teams Termite Renewal Inspector Relationship Specialty Start Date End Date Arron Vogt DO [address] [place] [address] PCP - General Family Medicine 09/22/22 Peggy Perez MD [address] [place] [address] Physician Gynecology 10/28/22 Radha Perez LSW Medical Laboratory Scientist 11/04/22 Josefina Perdue, PRIMER BOXER.BUILDING MAINTENANCE REPAIRER [address] [place] [address] Nurse Practitioner Gynecology 11/30/24 Alona Stephens, RN [address] [facility] [place] [address] Specialty Senior Backup Administrator Hematology/Oncology 11/30/[address] [facility] [place] [address] Registered Dietitian Nutrition 12/06/24 Giovany Killian, RN Specialty Senior Backup Administrator Hospice & Palliative Medicine 03/27/25 Sarita Barrera, PRIMER BOXER.BUILDING MAINTENANCE REPAIRER [address] [facility] [place] [address] Hospice & Palliative Medicine 03/27/25 documented as of this encounter
--- OUTSIDE RECORDS SUMMARY | 2025-07-11 08:56 | XMS_ITS | Encounter Summary ---
Author Organization [facility] Address [address] [place] [address] Care Team Providers Care Patient Registration Representative Name Role Phone MalcolmArron streeter Edgar NEGRON Primary Care Provider [phone] Alona Stephens RN Unavailable [phone] Peggy Perez MD Unavailable [phone] Jazlyn Wells PT SKILLED.DIRECTOR OF MARKET RESEARCH Unavailable [phone] Radha Perez Unavailable Unavailable Josefina Perdue PT SKILLED.DIRECTOR OF MARKET RESEARCH Unavailable Unavai Alona Tran RN Unavailable [phone] Unavailable [phone] Giovany Killian RN Unavailable Unava ilSarita Vallejo PT SKILLED.DIRECTOR OF MARKET RESEARCH Unavailable + Source Comments In the event this information is protected by the Federal Confidentiality of Alcohol and Drug AbusePatient Records regulations: The Federal rules restrict any use of the information to criminally investigate or prosecute any alcohol or drug abuse patient.[facility] Encounter Details Date Type Department Care Team (Late st Contact Info) Description 10/16/2023 Patient Msg Gynecology [address] [place], [place] [id number] Jazlyn Wells PT SKILLED.DIRECTOR OF MARKET RESEARCH [address] [place] [address] Labs Social History Tobacco Use Types Packs/Day Years Used Date Smoking Tobacco: Former Cigarettes 0.3 10 1 2004 Smokeless Tobacco: Never Alcohol Use Standard Drinks/Week Comments Not Currently 0 (1 standard drink = 0.6 oz pur e alcohol) PHQ-2 Answer Date Recorded PHQ-2 score 0 12/11/2022 Area Deprivation Index Answer Date Paco rded National Score (1-100), lower number is lower ri sk 53 02/18/2023 State Score (1-10), lower number is lower risk 3 02/18/2023 Data from: https://www.neighborhoodatlas.medicine.[facility].edu/. Last address used for calculation [address] [facility] 02/18/2023 Comments No Sex and Gender Information Value Date Recorded Sex Assigned at Not on file Legal Sex Female 8:38 AM EST Gender Identity Not on file Sexual Orientation Not on file documented as of this encounter Plan of Treatment Upcoming Encounters Date Type Department Care Team (Late st Contact Info) Description 07/11/2025 1:30 PM EDT Visit (SP) Office Gynecology Oncology [address] [facility] [place] [address] Josefina Perdue, PT SKILLED.DIRECTOR OF MARKET RESEARCH [address] [place], [place] [phone] PLEASE RESCHEDULE PALL MED 07/11/2025 2:00 PM EDT Infusion Center Hematology/Oncology [address] [place] [address] follow up keytruda 10/02/2025 2:30 PM EST [facility] Palliative Medicine [address] [facility] [place] [address] Sarita Barrera, PT SKILLED.DIRECTOR OF MARKET RESEARCH [address] [id number] 3 MONTH VV documented as of this encounter Visit Diagnoses Not on filedocumented in this encounter Care Teams Patient Registration Representative Relationship Specialty Start Date End Date Arron Vogt DO [address] [place] [address] PCP - General Family Medicine 09/22/22 Alona Stephens, RN [address] [facility] [place] [address] Specialty Special Procedures Nurse Hematology/Oncology 10/28/22 03/02/24 Peggy Perez MD [address] [phone] Physician Gynecology 10/28/22 Jazlyn Wells PT SKILLED.DIRECTOR OF MARKET RESEARCH [address] [place] [phone] Nurse Practitioner Gynecology 10/28/22 11/29/24 Radha Perez LSW Director Strategic Account Management 11/04/22 Josefina Perdue, PT SKILLED.DIRECTOR OF MARKET RESEARCH [address] [place] [address] Nurse Practitioner Gynecology 11/30/24 Alona Stephens, BHARTI [address] [place] [address] [place] [address] Specialty Special Procedures Nurse Hematology/Oncology 11/30/[address] [place] [address] [place] [address] Registered Dietitian Nutrition 12/06/24 Giovany Killian, RN Specialty Special Procedures Nurse Hospice & Palliative Medicine 03/27/25 Sarita Barrera, PT SKILLED.DIRECTOR OF MARKET RESEARCH [address] [place] [address] [place] [phone] Hospice & Palliative Medicine 03/27/25 documented as of this encounter
--- OUTSIDE RECORDS SUMMARY | 2025-07-11 08:56 | XMS_ITS | Encounter Summary ---
Author Organization [facility] Address [address] [place] [address] Care Team Providers Care Ceramic Capacitor Processor Name Role Phone MalcolmArron streeter Edgar NEGRON Primary Care Provider [phone] Peggy Perez MD Unavailable [phone] Radha Perez OPEN HEARTH WORKER Unavailable Unavailable Josefina Perdue ATTENDANT ARCADE.ASSOCIATE PROFESSOR OF ENGLISH Unavailable Unavai Alona Tran RN Unavailable Jessica Abreu RD Unavailable [phone] Giovany Killian RN Unavailable Unava ilSarita Vallejo ATTENDANT ARCADE.ASSOCIATE PROFESSOR OF ENGLISH Unavailable + Source Comments In the event this information is protected by the Federal Confidentiality of Alcohol and Drug AbusePatient Records regulations: The Federal rules restrict any use of the information to criminally investigate or prosecute any alcohol or drug abuse patient.[facility] Encounter Details Date Type Department Care Team (Late st Contact Info) Description 04/11/2025 Patient [facility] [address] [place] [address] Provider, Ccf Please Read: Genetic Testing Information Social History Tobacco Use Types Packs/Day Years Used Date Smoking Tobacco: Former Cigarettes 0.3 10 1 5 2004 Smokeless Tobacco: Never Alcohol Use Standard Drinks/Week Comments Not Currently 0 (1 standard drink = 0.6 oz pur e alcohol) PHQ-2 Answer Date Recorded PHQ-2 score 0 12/11/2022 Area Deprivation Index Answer Date Paco rded National Score (1-100), lower number is lower ri sk 53 02/18/2023 State Score (1-10), lower number is lower risk 3 02/18/2023 Data from: https://www.neighborhoodatlas.medicine.[facility].edu/. Last address used for calculation [address] [address] [facility] 02/18/2023 Comments No Sex and Gender Information Value Date Recorded Sex Assigned at Not on file Legal Sex Female 8:38 AM EST Gender Identity Not on file Sexual Orientation Not on file documented as of this encounter Plan of Treatment Upcoming Encounters Date Type Department Care Team (Late st Contact Info) Description 07/11/2025 1:30 PM EDT Visit (SP) Office Gynecology Oncology [address] [place] [address] [place] [address] Josefina Perdue, NO.ASSOCIATE PROFESSOR OF ENGLISH [address] [place] [address] PLEASE RESCHEDULE PALL MED 07/11/2025 2:00 PM EDT Infusion Center Hematology/Oncology [address] [place] [address] follow up keytruda 10/02/2025 2:30 PM EST [facility] Palliative Medicine [address] [place] [address] [place] [address] Sarita Barrera, ATTENDANT ARCADE.ASSOCIATE PROFESSOR OF ENGLISH [address] [place] [address] 3 MONTH VV documented as of this encounter Visit Diagnoses Not on filedocumented in this encounter Care Teams Ceramic Capacitor Processor Relationship Specialty Start Date End Date Arron Vogt DO [address] [place] [address] PCP - General Family Medicine 09/22/22 Peggy Perez MD [address] [place] [address] Physician Gynecology 10/28/22 Radha Perez LSW Furs Salesperson 11/04/22 Josefina Perdue, NO.ASSOCIATE PROFESSOR OF ENGLISH [address] [place] [address] Nurse Practitioner Gynecology 11/30/24 Alona Stephens, RN [address] [place] [address] [place] [address] Specialty Steward/Stewardess Chief Cargo Vessel Hematology/Oncology 11/30/[address] [place], [place] [address] [address] Registered Dietitian Nutrition 12/06/24 Giovany Killian, RN Specialty Steward/Stewardess Chief Cargo Vessel Hospice & Palliative Medicine 03/27/25 Sarita Barrera, ATTENDANT ARCADE.ASSOCIATE PROFESSOR OF ENGLISH [address] [place], [place] [address] [address] Hospice & Palliative Medicine 03/27/25 documented as of this encounter
--- OUTSIDE RECORDS SUMMARY | 2025-07-11 08:56 | XMS_ITS ---
Author Organization [facility] Healthcare Address [address] [place] [address] Care Team Providers Care Rail Flaw Detector Operator Name Role Phone Arron Vogt DO Primary Care Provider [phone] Active Problems No known active problems Current Treatment and Therapy Plans No current plan information found. Past Treatment and Therapy Plans No past plan information found. Lifetime Dose Tracking * Chemical Lifetime Dose Automatic Entry Manual Entr y Radiation 21 mSv 21 mSv 0 mSv Resolved Problems Problem Noted Date Diagnosed Date Resolved Date Endometrial thickening on ultrasound 07/07/2023 07/07/2023 Postmenopausal bleeding 07/07/202306/12 Adenocarcinoma of endometrium 10/28/2022 07/07/2023 Obesity, Class III, BMI 40-4 9.9 (morbid obesity) 10/07/2022 07/07/2023
--- OUTSIDE RECORDS SUMMARY | 2025-07-11 08:56 | XMS_ITS | Encounter Summary ---
Author Organization [facility] Address [facility] [place] [address] Care Team Providers Care Germination Worker Name Role Phone MalcolmArron streeter Edgar NEGRON Primary Care Provider [phone] Peggy Perez MD Unavailable [phone] Radha Perez CHILDREN COUNSELOR Unavailable Unavailable Josefina Perdue TV PRODUCTION ASSISTANT.METAL MACHINE OPERATOR Unavailable Unavai Alona Tran RN Unavailable [phone] Unavailable [phone] Giovany Killian RN Unavailable Unava ilSarita Vallejo TV PRODUCTION ASSISTANT.METAL MACHINE OPERATOR Unavailable + Source Comments In the event this information is protected by the Federal Confidentiality of Alcohol and Drug AbusePatient Records regulations: The Federal rules restrict any use of the information to criminally investigate or prosecute any alcohol or drug abuse patient.[facility] Encounter Details Date Type Department Care Team (Late st Contact Info) Description 02/06/2025 Patient Msg Hematology/Oncology [address] [place] [address] Provider, Ccf Genomics testing ordered by Dr. Perez Social History Tobacco Use Types Packs/Day Years [...] is lower risk 3 02/18/2023 Data from: https://www.neighborhoodatlas.medicine.[facility].edu/. Last address used for calculation [address] 02/18/2023 Comments No Sex and Gender Information Value Date Recorded Sex Assigned at Not on file Legal Sex Female 8:38 AM EST Gender Identity Not on file Sexual Orientation Not on file documented as of this encounter Plan of Treatment Upcoming Encounters Date Type Department Care Team (Late st Contact Info) Description 07/11/2025 1:30 PM EDT Visit (SP) Office Gynecology Oncology [address] [place] [address] [place] [address] Josefina Perdue APRN.METAL MACHINE OPERATOR [address] [place] [address] PLEASE RESCHEDULE PALL MED 07/11/2025 2:00 PM EDT Infusion Center Hematology/Oncology [address] [place] [address] follow up keytruda 10/02/2025 2:30 PM EST [facility] Palliative Medicine [address] [place] [address] [place] [address] Sarita Barrera, TV PRODUCTION ASSISTANT.METAL MACHINE OPERATOR [address] [place] [address] 3 MONTH VV documented as of this encounter Visit Diagnoses Not on filedocumented in this encounter Care Teams Germination Worker Relationship Specialty Start Date End Date Arron Vogt DO [address] [place] [address] PCP - General Family Medicine 09/22/22 Peggy Perez MD [address] [place] [address] Physician Gynecology 10/28/22 Radha Perez LSW Compensator Worker 11/04/22 Josefina Perdue, TV PRODUCTION ASSISTANT.METAL MACHINE OPERATOR [address] [place] [address] Nurse Practitioner Gynecology 11/30/24 Alona Stephens, RN [address] [place] [address] [place] [address] Specialty Clerk Entry Level Hematology/Oncology 11/30/[address] [facility] [place] [address] Registered Dietitian Nutrition 12/06/24 Giovany Killian, RN Specialty Clerk Entry Level Hospice & Palliative Medicine 03/27/25 Sarita Barrera, TV PRODUCTION ASSISTANT.METAL MACHINE OPERATOR [facility] [place] [address] Hospice & Palliative Medicine 03/27/25 documented as of this encounter
--- OUTSIDE RECORDS SUMMARY | 2025-07-11 08:56 | XMS_ITS | Encounter Summary ---
Author Organization [facility] Address [address] [place] [address] Care Team Providers Care Phlebotomy Instructor Name Role Phone MalcolmArron streeter Edgar NEGRON Primary Care Provider [phone] Peggy Perez MD Unavailable [phone] Jazlyn Wells TEST PREPARER.CARGO CHECKER Unavailable Radha Perez Unavailable Unavailable Josefina Perdue TEST PREPARER.CARGO CHECKER Unavailable Unavai Alona Tran RN Unavailable [phone] Unavailable [phone] Giovany Killian RN Unavailable Unava ilSarita Vallejo TEST PREPARER.CARGO CHECKER Unavailable + Source Comments In the event this information is protected by the Federal Confidentiality of Alcohol and Drug AbusePatient Records regulations: The Federal rules restrict any use of the information to criminally investigate or prosecute any alcohol or drug abuse patient.[facility] Reason for Visit * Reason Comments Radiology Pre Procedure Instructions Encounter Details Date Type Department Care Team (Late st Contact Info) Description 11/10/2024 Telephone [facility] [address] [place] [address] Kenisha Lloyd, fast food restaurant manager Pre Procedure Instructions Social History Tobacco Use Types Packs/Day Years Used Date Smoking Tobacco: Former Cigarettes 0.3 10 1 995 - 2005 Smokeless Tobacco: Never Alcohol Use Standard Drinks/Week Comments Not Currently 0 (1 standard drink = 0.6 oz pur e alcohol) PHQ-2 Answer Date Recorded PHQ-2 score 0 12/11/2022 Area Deprivation Index Answer Date Paco rded National Score (1-100), lower number is lower ri sk 53 02/18/2023 State Score (1-10), lower number is lower risk 3 02/18/2023 Data from: https://www.neighborhoodatlas.medicine.[facility]/. Last address used for calculation [address] 02/18/2023 Comments No Sex and Gender Information Value Date Recorded Sex Assigned at Not on file Legal Sex Female 8:38 AM EST Gender Identity Not on file Sexual Orientation Not on file documented as of this encounter Miscellaneous Notes * Telephone Encounter - Kenisha Lloyd, RN - 11/10/2024 10:26 AM EST You are scheduled for a Biopsy, On 11/13/2024 You are to arrive at 10:00 am and Report to [facility] First Floor Radiology Registration Desk. You can expect to be here for 4-8 hours. Diet: Do not eat any solid food after midnight the day of/night before your procedure. You may drink clear liquids until 9:00 am, which means black coffee, apple juice, black tea, or water only. Medications: Ok to take your cardiac, blood pressure, anti-seizure, and chronic pain medications with a sip of water, please take prior to arrival. Bring your current medication list. [place]/Transportation: How will you be arriving for your procedure? Private car. You will need a responsible adult to accompany you to and from the procedure. Your funeral car driver is required to stay with you until you are taken into the procedure room. documented in this encounter Plan of Treatment Upcoming Encounters Date Type Department Care Team (Late st Contact Info) Description 07/11/2025 1:30 PM EDT Visit (SP) Office Gynecology Oncology [address] [place] [address] [place] [address] Josefina Perdue APRN.CARGO CHECKER [address] [place] [address] PLEASE RESCHEDULE PALL MED 07/11/2025 2:00 PM EDT [facility] Hematology/Oncology [address] [place] [address] [place] [address] follow up keytruda 10/02/2025 2:30 PM EST [facility] Health Palliative Medicine [address] [place] [address] [place] [address] Sarita Barrera, TEST PREPARER.CARGO CHECKER [address] [place] [id number] 3 MONTH VV documented as of this encounter Visit Diagnoses Not on filedocumented in this encounter Care Teams Phlebotomy Instructor Relationship Specialty Start Date End Date Arron Vogt DO [facility] [place] [address] PCP - General Family Medicine 09/22/22 Peggy Perez MD [address] [place] [address] Physician Gynecology 10/28/22 Jazlyn Wells APRN.CARGO CHECKER [address] [place] [address] Nurse Practitioner Gynecology 10/28/22 11/29/24 Chris, Radha, MARKETING STRATEGY MANAGER Bowling Ball Grader 11/04/22 Josefina Perdue, TEST PREPARER.CARGO CHECKER [address] [place] [address] Nurse Practitioner Gynecology 11/30/24 Alona Stephens, RN [address] [place] [address] [place] [address] Specialty Sand Sifter Hematology/Oncology 11/30/[address] [place] [address] [place] [address] Registered Dietitian Nutrition 12/06/24 Giovany Killian RN Specialty Sand Sifter Hospice & Palliative Medicine 03/27/25 Sarita Barrera, TEST PREPARER.CARGO CHECKER [facility] [place] [address] Hospice & Palliative Medicine 03/27/25 documented as of this encounter
--- OUTSIDE RECORDS SUMMARY | 2025-07-11 08:56 | XMS_ITS | Encounter Summary ---
Author Organization [facility] Address [facility] [place] [address] Care Team Providers Care Academic Program Specialist Name Role Phone MalcolmArron streeter Edgar NEGRON Primary Care Provider [phone] Peggy Perez MD Unavailable [phone] Radha Perez DEMOLITION SPECIALIST Unavailable Unavailable Josefina Perdue ENTREPRENEURIAL FINANCE PROFESSOR.ACCOUNT MANAGER TRAINEE Unavailable Unavai Alona Tran RN Unavailable [phone] Unavailable [phone] Giovany Killian RN Unavailable Unava ilSarita Vallejo ENTREPRENEURIAL FINANCE PROFESSOR.ACCOUNT MANAGER TRAINEE Unavailable + Source Comments In the event this information is protected by the Federal Confidentiality of Alcohol and Drug AbusePatient Records regulations: The Federal rules restrict any use of the information to criminally investigate or prosecute any alcohol or drug abuse patient.[facility] Encounter Details Date Type Department Care Team (Late st Contact Info) Description 03/30/2025 Patient Msg Gynecology Oncology [address] [place] [address] Dasha Gaitan MD [address] [place] [address] Appointment Cancellation Request Social History Tobacco Use [...] is lower risk 3 02/18/2023 Data from: https://www.neighborhoodatlas.medicine.[facility].edu/. Last address used for calculation [address] 02/18/2023 Comments No Sex and Gender Information Value Date Recorded Sex Assigned at Not on file Legal Sex Female 8:38 AM EST Gender Identity Not on file Sexual Orientation Not on file documented as of this encounter Plan of Treatment Upcoming Encounters Date Type Department Care Team (Late st Contact Info) Description 07/11/2025 1:30 PM EDT Visit (SP) Office Gynecology Oncology [address] [place] [address] [place] [address] Josefina Perdue, ENTREPRENEURIAL FINANCE PROFESSOR.ACCOUNT MANAGER TRAINEE [address] [place] [address] PLEASE RESCHEDULE PALL MED 07/11/2025 2:00 PM EDT Infusion Center Hematology/Oncology [address] [place] [address] [place] [address] follow up keytruda 10/02/2025 2:30 PM EST [facility] Palliative Medicine [address] [facility] [place] [address] Sarita Barrera, ENTREPRENEURIAL FINANCE PROFESSOR.ACCOUNT MANAGER TRAINEE [address] [place] [address] 3 MONTH VV documented as of this encounter Visit Diagnoses Not on filedocumented in this encounter Care Teams Academic Program Specialist Relationship Specialty Start Date End Date Arron Vogt DO [address] [place] [address] PCP - General Family Medicine 09/22/22 Peggy Perez MD [address] [place] [address] Physician Gynecology 10/28/22 Radha Perez LSW Supervisor Inspection Room 11/04/22 Josefina Perdue, ENTREPRENEURIAL FINANCE PROFESSOR.ACCOUNT MANAGER TRAINEE [address] [place] [address] Nurse Practitioner Gynecology 11/30/24 Alona Stephens, RN [address] [facility] [place] [address] Specialty Broach Trouble Shooter Hematology/Oncology 11/30/[address] [facility] [place] [address] Registered Dietitian Nutrition 12/06/24 Giovany Killian, RN Specialty Broach Trouble Shooter Hospice & Palliative Medicine 03/27/25 Sarita Barrera, ENTREPRENEURIAL FINANCE PROFESSOR.ACCOUNT MANAGER TRAINEE [address] [facility] [place] [address] Hospice & Palliative Medicine 03/27/25 documented as of this encounter
--- OUTSIDE RECORDS SUMMARY | 2025-07-11 08:56 | XMS_ITS | Encounter Summary ---
Author Organization [facility] Address [address] [place] [address] Care Team Providers Care Crown Blocker Name Role Phone MalcolmArron streeter Edgar NEGRON Primary Care Provider [phone] Peggy Perez MD Unavailable [phone] Radha Perez COMMUNICATION LECTURER Unavailable Unavailable Josefina Perdue LABORER [employer]ER FARM.GOLF COURSE SUPERINTENDENT Unavailable Unavai Alona Tran RN Unavailable [phone] Unavailable [phone] Giovany Killian RN Unavailable Unava ilSarita Vallejo LABORER [employer]ER FARM.GOLF COURSE SUPERINTENDENT Unavailable + Source Comments In the event this information is protected by the Federal Confidentiality of Alcohol and Drug AbusePatient Records regulations: The Federal rules restrict any use of the information to criminally investigate or prosecute any alcohol or drug abuse patient.[facility] Reason for Visit * Reason Comments FMLA Paperwork Encounter Details Date Type Department Care Team (Late st Contact Info) Description 07/10/2025 Telephone Hematology/Oncology [address] [place] [address] Peggy Perez MD [address] [place] [address] [facility] Paperwork Social History Tobacco Use Types Packs/Day Years [...] is lower risk 3 02/18/2023 Data from: https://www.neighborhoodatlas.[facility]/. Last address used for calculation [address] [facility] [facility] 02/18/2023 Comments No Sex and Gender Information Value Date Recorded Sex Assigned at Not on file Legal Sex Female 8:38 AM EST Gender Identity Not on file Sexual Orientation Not on file documented as of this encounter Miscellaneous Notes * Telephone Encounter - Skye Kaplan MA - 07/10/2025 10:42 AM EDT Updated [facility] paperwork for patients family member has been completed and faxed to Suyapa porter @[phone]. Skye Kaplan MA documented in this encounter Plan of Treatment Upcoming Encounters Date Type Department Care Team (Late st Contact Info) Description 07/11/2025 1:30 PM EDT Visit (SP) Office Gynecology Oncology [address] [place] [address] [place] [address] Josefina Perdue APRN.GOLF COURSE SUPERINTENDENT [address] [place] [address] PLEASE RESCHEDULE PALL MED 07/11/2025 2:00 PM EDT Infusion Center Hematology/Oncology [address] [facility] [place] [address] follow up keytruda 10/02/2025 2:30 PM [facility] Palliative Medicine [address] [place] [address] [place] [address] Sarita Barrera, LABORER FRYER FARM.GOLF COURSE SUPERINTENDENT [address] [place] [address] 3 MONTH VV documented as of this encounter Visit Diagnoses Not on filedocumented in this encounter Care Teams Crown Blocker Relationship Specialty Start Date End Date Arron Vogt DO [address] [place] [address] PCP - General Family Medicine 09/22/22 Peggy Perez MD [address] [place] [address] Physician Gynecology 10/28/22 Radha Perez LSW Custodial Operations Manager 11/04/22 Josefina Perdue, NO.GOLF COURSE SUPERINTENDENT [address] [place] [address] Nurse Practitioner Gynecology 11/30/24 Alona Stephens, RN [address] [facility] [place] [address] Specialty Instructional Systems Specialist Hematology/Oncology 11/30/[address] [place] [address] [place] [address] Registered Dietitian Nutrition 12/06/24 Giovany Killian, RN Specialty Instructional Systems Specialist Hospice & Palliative Medicine 03/27/25 Sarita Barrera, LABORER FRYER FARM.GOLF COURSE SUPERINTENDENT [address] [place] [address] [place] [address] Hospice & Palliative Medicine 03/27/25 documented as of this encounter
--- OUTSIDE RECORDS SUMMARY | 2025-07-11 08:56 | XMS_ITS | Encounter Summary ---
Author Organization [facility] Address [address] [place] [address] Care Team Providers Care Chief Deputy Name Role Phone MalcolmArron streeter Edgar NEGRON Primary Care Provider [phone] Peggy Perez MD Unavailable [phone] Radha Perez DIGITAL MARKETING EXECUTIVE Unavailable Unavailable Josefina Perdue RADIOLOGY SERVICES MANAGER.NATURAL RESOURCES ENGINEER Unavailable Unavai Alona Tran RN Unavailable [phone] Unavailable [phone] Giovany Killian RN Unavailable Unava ilSarita Vallejo RADIOLOGY SERVICES MANAGER.NATURAL RESOURCES ENGINEER Unavailable + Source Comments In the event this information is protected by the Federal Confidentiality of Alcohol and Drug AbusePatient Records regulations: The Federal rules restrict any use of the information to criminally investigate or prosecute any alcohol or drug abuse patient.[facility] Reason for Visit * Reason Comments Care Coordination question Encounter Details Date Type Department Care Team (Late st Contact Info) Description 07/09/2025 Telephone Hematology/Oncology [address] [address] Alona Stephens RN [address] [place] [address] Care Coordination (question) Social History Tobacco Use Types Packs/Day Years [...] is lower risk 3 02/18/2023 Data from: https://www.neighborhoodatlas.medicine.[facility]/. Last address used for calculation [address] 02/18/2023 Comments No Sex and Gender Information Value Date Recorded Sex Assigned at Not on file Legal Sex Female 8:38 AM EST Gender Identity Not on file Sexual Orientation Not on file documented as of this encounter Miscellaneous Notes * Telephone Encounter - Alona Stephens RN - 07/10/2025 9:41 AM EDT Images from the original note were not included. Pt is scheduled to see Josefina tomorrow. SS: FYI Thanks BHARTI Espinoza Kristen E, APRN.NATURAL RESOURCES ENGINEER You; Peggy Perez MD; Josefina Perdue, CNP15 hours ago (6:10 PM) Adeel Sage, I think she should come in for an exam. This is suspicious for BV. Thank you, Cornelia * Telephone Encounter - Alona Stephens RN - 07/09/2025 3:50 PM EDT Pt in for education today and states she has a strong ammonia smell when she pulls down her underwear. Pt denies any drainage or itching. States she can just smell the odor of ammonia and isn't sure why it's like that. Please advise Alona Stephens RN documented in this encounter Plan of Treatment Upcoming Encounters Date Type Department Care Team (Late st Contact Info) Description 07/11/2025 1:30 PM EDT Visit (SP) Office Gynecology Oncology [address] [place] [address] [place] [address] Josefina Perdue APRN.NATURAL RESOURCES ENGINEER [address] [place] [address] PLEASE RESCHEDULE PALL MED 07/11/2025 2:00 PM EDT [facility] Hematology/Oncology [address] [place] [address] [place] [address] follow up keytruda 10/02/2025 2:30 PM [facility] Palliative Medicine [address] [place] [address] [place] [address] Sarita Barrera, RADIOLOGY SERVICES MANAGER.NATURAL RESOURCES ENGINEER [address] [id number] 3 MONTH VV documented as of this encounter Visit Diagnoses Not on filedocumented in this encounter Care Teams Chief Deputy Relationship Specialty Start Date End Date Arron Vogt DO [facility] [place] [address] PCP - General Family Medicine 09/22/22 Peggy Perez MD [address] [place] [address] Physician Gynecology 10/28/22 Radha Perez LSW Game Technician 11/04/22 Josefina Perdue, NO.NATURAL RESOURCES ENGINEER [address] [place] [address] Nurse Practitioner Gynecology 11/30/24 Alona Stephens, RN [address] [place] [address] [place] [address] Specialty Account Manager Relief Hematology/Oncology 11/30/[address] [place] [address] [place], [place] [id number] Registered Dietitian Nutrition 12/06/24 Giovany Killian RN Specialty Account Manager Relief Hospice & Palliative Medicine 03/27/25 Sarita Barrera APRN.NATURAL RESOURCES ENGINEER [address] [place] [address] [place] [address] Hospice & Palliative Medicine 03/27/25 documented as of this encounter
--- OUTSIDE RECORDS SUMMARY | 2025-07-11 08:56 | XMS_ITS | Encounter Summary ---
Author Organization [facility] Address [address] [place] [address] Care Team Providers Care Recruiting Consultant Name Role Phone MalcolmArron streeter Edgar NEGRON Primary Care Provider [phone] Peggy Perez MD Unavailable [phone] Radha Perez NURSING TECHNICIAN Unavailable Unavailable Josefina Perdue MATERIAL PLANNING ANALYST.CAUSTIC ROOM OPERATOR Unavailable Unavai Alona Tran RN Unavailable [phone] Unavailable [phone] Giovany Killian RN Unavailable Unava ilSarita Vallejo MATERIAL PLANNING ANALYST.CAUSTIC ROOM OPERATOR Unavailable + Source Comments In the event this information is protected by the Federal Confidentiality of Alcohol and Drug AbusePatient Records regulations: The Federal rules restrict any use of the information to criminally investigate or prosecute any alcohol or drug abuse patient.[facility] Encounter Details Date Type Department Care Team (Latest Contact Info) Description 07/03/2025 Travel Social History Tobacco Use Types Packs/Day Years [...] is lower risk 3 02/18/2023 Data from: https://www.neighborhoodatlas.medicine.[facility]/. Last address used for calculation [address] 02/18/2023 Comments No Sex and Gender Information Value Date Recorded Sex Assigned at Not on file Legal Sex Female 8:38 AM EST Gender Identity Not on file Sexual Orientation Not on file documented as of this encounter Plan of Treatment Upcoming Encounters Date Type Department Care Team (Late st Contact Info) Description 07/11/2025 1:30 PM EDT Visit (SP) Office Gynecology Oncology [address] [place] [address] [place] [address] Josefina Perdue, MATERIAL PLANNING ANALYST.CAUSTIC ROOM OPERATOR [address] [place], [place] [address] PLEASE RESCHEDULE PALL MED 07/11/2025 2:00 PM EDT Infusion Center Hematology/Oncology [address] [place] [address] [place] [address] follow up keytruda 10/02/2025 2:30 PM EST [facility] Palliative Medicine [address] [place] [address] [place] [address] Sarita Barrera, MATERIAL PLANNING ANALYST.CAUSTIC ROOM OPERATOR [address] [place] [address] 3 MONTH VV documented as of this encounter Visit Diagnoses Not on filedocumented in this encounter Care Teams Recruiting Consultant Relationship Specialty Start Date End Date Arron Vogt DO [address] [place] [address] PCP - General Family Medicine 09/22/22 Peggy Perez MD [address] [place] [address] Physician Gynecology 10/28/22 Radha Perez LSW Bridge Engineer 11/04/22 Josefina Perdue, MATERIAL PLANNING ANALYST.CAUSTIC ROOM OPERATOR [address] [place] [address] Nurse Practitioner Gynecology 11/30/24 Alona Stephens, RN [address] [place] [address] [place] [address] Specialty Human Resources Leader Hematology/Oncology 11/30/[address] [place] [address] [place] [address] Registered Dietitian Nutrition 12/06/24 Giovany Killian, RN Specialty Human Resources Leader Hospice & Palliative Medicine 03/27/25 Sarita Barrera, MATERIAL PLANNING ANALYST.CAUSTIC ROOM OPERATOR [address] [place] [address] [place] [id number] Hospice & Palliative Medicine 03/27/25 documented as of this encounter
--- OUTSIDE RECORDS SUMMARY | 2025-07-11 08:56 | XMS_ITS | Encounter Summary ---
Author Organization [facility] Address [address] [place] [address] Care Team Providers Care Church Secretary Name Role Phone MalcolmArron streeter Edgar NEGRON Primary Care Provider [phone] Peggy Perez MD Unavailable [phone] Radha Perez FISH CAKE MAKER Unavailable Unavailable Josefina Perdue REPEAT PHOTOCOMPOSING MACHINE OPERATOR.REPAIRER RECREATIONAL VEHICLE Unavailable Unavai Alona Tran RN Unavailable [phone] Unavailable [phone] Giovany Killian RN Unavailable Unava ilSarita Vallejo REPEAT PHOTOCOMPOSING MACHINE OPERATOR.REPAIRER RECREATIONAL VEHICLE Unavailable + Source Comments In the event this information is protected by the Federal Confidentiality of Alcohol and Drug AbusePatient Records regulations: The Federal rules restrict any use of the information to criminally investigate or prosecute any alcohol or drug abuse patient.[facility] Encounter Details Date Type Department Care Team (Late st Contact Info) Description 05/17/2025 Patient Msg HOSP MAIN H060 [address] [id number] Provider, Ccf Sign up to manage your digestive symptoms in between visits, covered by insurance Social History Tobacco Use Types Packs/Day Years [...] risk 3 02/18/2023 Data from: https://www.neighborhoodatlas.medicine.[facility].edu/. Last address used for calculation [address] 02/18/2023 Comments No Sex and Gender Information Value Date Recorded Sex Assigned at Not on file Legal Sex Female 8:38 AM EST Gender Identity Not on file Sexual Orientation Not on file documented as of this encounter Plan of Treatment Upcoming Encounters Date Type Department Care Team (Late st Contact Info) Description 07/11/2025 1:30 PM EDT Visit (SP) Office Gynecology Oncology [address] [place] [address] [place] [address] Josefina Perdue, REPEAT PHOTOCOMPOSING MACHINE OPERATOR.REPAIRER RECREATIONAL VEHICLE [address] [place], [place] [id number] PLEASE RESCHEDULE PALL MED 07/11/2025 2:00 PM EDT Infusion Center Hematology/Oncology [address] [place] [address] [place] [address] follow up keytruda 10/02/2025 2:30 PM EST [facility] Palliative Medicine [address] [place] [address] [place] [address] Sarita Barrera, REPEAT PHOTOCOMPOSING MACHINE OPERATOR.REPAIRER RECREATIONAL VEHICLE [address] [id number] 3 MONTH VV documented as of this encounter Visit Diagnoses Not on filedocumented in this encounter Care Teams Church Secretary Relationship Specialty Start Date End Date Arron Vogt DO [address] [place] [address] PCP - General Family Medicine 09/22/22 Peggy Perez MD [address] [place] [address] Physician Gynecology 10/28/22 Radha Perez LSW Ore Washer 11/04/22 Josefina Perdue, REPEAT PHOTOCOMPOSING MACHINE OPERATOR.REPAIRER RECREATIONAL VEHICLE [address] [place] [address] Nurse Practitioner Gynecology 11/30/24 Alona Stephens, RN [address] [place] [address] Specialty Registered Nurse First Assistant Hematology/Oncology 11/30/[address] [facility] [place] [address] Registered Dietitian Nutrition 12/06/24 Giovany Killian, RN Specialty Registered Nurse First Assistant Hospice & Palliative Medicine 03/27/25 Sarita Barrera, REPEAT PHOTOCOMPOSING MACHINE OPERATOR.REPAIRER RECREATIONAL VEHICLE [facility] [place] [address] Hospice & Palliative Medicine 03/27/25 documented as of this encounter
--- OUTSIDE RECORDS SUMMARY | 2025-07-11 08:56 | XMS_ITS | Encounter Summary ---
Author Organization [facility] Address [address] [place] [address] Care Team Providers Care Enterprise Account Manager Name Role Phone MalcolmArron streeter Edgar NEGRON Primary Care Provider [phone] Peggy Perez MD Unavailable [phone] ENGINEER.ATG ARCHITECT Unavailable [phone] Radha Perez Unavailable Unavailable Josefina Perdue ROAD ENGINEER.ATG ARCHITECT Unavailable Unavai Alona Tran RN Unavailable [phone] Unavailable [phone] Giovany Killian RN Unavailable Unava ilSarita Vallejo ROAD ENGINEER.ATG ARCHITECT Unavailable + Source Comments In the event this information is protected by the Federal Confidentiality of Alcohol and Drug AbusePatient Records regulations: The Federal rules restrict any use of the information to criminally investigate or prosecute any alcohol or drug abuse patient.[facility] Reason for Visit * Reason Comments Radiology Pre Procedure Instructions Encounter Details Date Type Department Care Team (Late st Contact Info) Description 11/06/2024 Telephone [facility] [address] [place] [id number] Kenisha Lloyd, floor broker Pre Procedure Instructions Social History Tobacco Use [...] is lower risk 3 02/18/2023 Data from: https://www.neighborhoodatlas.medicine.[facility]/. Last address used for calculation [address] 02/18/2023 Comments No Sex and Gender Information Value Date Recorded Sex Assigned at Not on file Legal Sex Female 8:38 AM EST Gender Identity Not on file Sexual Orientation Not on file documented as of this encounter Miscellaneous Notes * Telephone Encounter - Kenisha Lloyd RN - 11/06/2024 3:20 PM EST You are scheduled for a Retroperitoneal Biopsy, On 11/10/24. You are to arrive at 7:00 am and Report to [facility] [address] [place] [address] First Floor Radiology Registration Desk. You can expect to be here for 4-8 hours. Diet: Do not eat any solid food after midnight the day of/night before your procedure. You may drink clear liquids until 6:30 am, which means black coffee, apple juice, black tea, or water only. Medications: Ok to take your cardiac, blood pressure, anti-seizure, and chronic pain medications with a sip of water, please take prior to arrival. Bring your current medication list. Labs: Lab-work needs to be drawn? Yes, drawn day of procedure. Stock Feeder/Transportation: How will you be arriving for your procedure? Private car. You will need a responsible adult to accompany you to and from the procedure. Your reefer truck driver is required to stay with you until you are taken into the procedure room. documented in this encounter Plan of Treatment Upcoming Encounters Date Type Department Care Team (Late st Contact Info) Description 07/11/2025 1:30 PM EDT Visit (SP) Office Gynecology Oncology [address] [place] [address] [place] [address] Josefina Perdue APRN.ATG ARCHITECT [address] [place] [address] PLEASE RESCHEDULE PALL MED 07/11/2025 2:00 PM EDT Infusion Center Hematology/Oncology [address] [place] [address] [place] [address] follow up keytruda 10/02/2025 2:30 PM EST [facility] Palliative Medicine [address] [place] [address] [place] [address] Sarita Barrera APRN.ATG ARCHITECT [address] [id number] 3 MONTH VV documented as of this encounter Visit Diagnoses Not on filedocumented in this encounter Care Teams Enterprise Account Manager Relationship Specialty Start Date End Date Arron Vogt DO [address] [place] [address] PCP - General Family Medicine 09/22/22 Peggy Perez MD [address] [phone] Physician Gynecology 10/28/22 Jazlyn Wells APRN.ATG ARCHITECT [address] [id number] Nurse Practitioner Gynecology 10/28/22 11/29/24 Radha Perez LSW Rice Farmworker 11/04/22 Josefina Perdue, ROAD ENGINEER.ATG ARCHITECT [address] [place] [address] Nurse Practitioner Gynecology 11/30/24 Alona Stephens, RN [address] [facility] [place] [address] Specialty Binder Chainstitch Hematology/Oncology 11/30/[address] [place] [address] [place] [address] Registered Dietitian Nutrition 12/06/24 Giovany Killian, RN Specialty Binder Chainstitch Hospice & Palliative Medicine 03/27/25 Sarita Barrera, ROAD ENGINEER.ATG ARCHITECT [address] [facility] [place] [address] Hospice & Palliative Medicine 03/27/25 documented as of this encounter
--- OUTSIDE RECORDS SUMMARY | 2025-07-11 08:56 | XMS_ITS | Encounter Summary ---
Author Organization [facility] Address [address] [place] [address] Care Team Providers Care Passenger Train Braker Name Role Phone MalcolmArron streeter Edgar NEGRON Primary Care Provider [phone] Peggy Perez MD Unavailable [phone] Radha Perez COMPOSITION INSTRUCTOR Unavailable Unavailable Josefina Perdue AUTOMOTIVE HEAVY MECHANIC.BRAND DESIGNER Unavailable Unavai Alona Tran RN Unavailable [phone] Unavailable [phone] Giovany Killian RN Unavailable Unava ilSarita Vallejo AUTOMOTIVE HEAVY MECHANIC.BRAND DESIGNER Unavailable + Source Comments In the event this information is protected by the Federal Confidentiality of Alcohol and Drug AbusePatient Records regulations: The Federal rules restrict any use of the information to criminally investigate or prosecute any alcohol or drug abuse patient.[facility] Encounter Details Date Type Department Care Team (Late st Contact Info) Description 12/07/2024 Get Medical Advice Gynecology Oncology [address] [place] [address] [place] [address] Peggy Perez MD [address] [place] [address] type of cancer Social History Tobacco Use Types Packs/Day Years [...] is lower risk 3 02/18/2023 Data from: https://www.neighborhoodatlas.medicine.[facility].edu/. Last address used for calculation [address] [facility] 02/18/2023 Comments No Sex and Gender Information Value Date Recorded Sex Assigned at Not on file Legal Sex Female 8:38 AM EST Gender Identity Not on file Sexual Orientation Not on file documented as of this encounter Plan of Treatment Upcoming Encounters Date Type Department Care Team (Late st Contact Info) Description 07/11/2025 1:30 PM EDT Visit (SP) Office Gynecology Oncology [address] [facility] [place] [address] Josefina Perdue, AUTOMOTIVE HEAVY MECHANIC.BRAND DESIGNER [address] [place] [address] PLEASE RESCHEDULE PALL MED 07/11/2025 2:00 PM EDT Infusion Center Hematology/Oncology [address] [place] [address] [place] [address] follow up keytruda 10/02/2025 2:30 PM EST [facility] Palliative Medicine [address] [facility] [place] [address] Sarita Barrera, AUTOMOTIVE HEAVY MECHANIC.BRAND DESIGNER [address] [place] [address] 3 MONTH VV documented as of this encounter Visit Diagnoses Not on filedocumented in this encounter Care Teams Passenger Train Braker Relationship Specialty Start Date End Date Arron Vogt DO [address] [place] [address] PCP - General Family Medicine 09/22/22 Peggy Perez MD [address] [place] [address] Physician Gynecology 10/28/22 Radha Perez LSW Network Operations Center Engineer 11/04/22 Josefina Perdue AUTOMOTIVE HEAVY MECHANIC.BRAND DESIGNER [address] [place] [address] Nurse Practitioner Gynecology 11/30/24 Alona Stephens, RN [address] [facility] [place] [address] Specialty Licensed Massage Practitioner Hematology/Oncology 11/30/[address] [place] [address] [place] [address] Registered Dietitian Nutrition 12/06/24 Giovany Killian, RN Specialty Licensed Massage Practitioner Hospice & Palliative Medicine 03/27/25 Sarita Barrera, AUTOMOTIVE HEAVY MECHANIC.BRAND DESIGNER [address] [place] [address] Hospice & Palliative Medicine 03/27/25 documented as of this encounter
--- OUTSIDE RECORDS SUMMARY | 2025-07-11 08:56 | XMS_ITS | Encounter Summary ---
Author Organization [facility] Address [facility] [place] [address] Care Team Providers Care Child Support Agent Name Role Phone MalcolmArron streeter Edgar NEGRON Primary Care Provider [phone] Peggy Perez MD Unavailable [phone] Radha Perez CRULLER MAKER MACHINE Unavailable Unavailable Josefina Perdue PRODUCT SUPPORT REP.MANAGER COMMODITIES Unavailable Unavai Alona Tran RN Unavailable [phone] Unavailable [phone] Giovany Killian RN Unavailable Unava ilSarita Vallejo PRODUCT SUPPORT REP.MANAGER COMMODITIES Unavailable + Source Comments In the event this information is protected by the Federal Confidentiality of Alcohol and Drug AbusePatient Records regulations: The Federal rules restrict any use of the information to criminally investigate or prosecute any alcohol or drug abuse patient.[facility] Encounter Details Date Type Department Care Team (Late st Contact Info) Description 07/10/2025 Results Follow-Up Gynecology Oncology [address] [place] [address] Josefina Perdue PRODUCT SUPPORT REP.MANAGER COMMODITIES [address] [place] [address] Social History Tobacco Use Types Packs/Day Years [...] is lower risk 3 02/18/2023 Data from: https://www.neighborhoodatlas.medicine.[facility].edu/. Last address used for calculation [address] 02/18/2023 Comments No Sex and Gender Information Value Date Recorded Sex Assigned at Not on file Legal Sex Female 8:38 AM EST Gender Identity Not on file Sexual Orientation Not on file documented as of this encounter Plan of Treatment Upcoming Encounters Date Type Department Care Team (Late st Contact Info) Description 07/11/2025 1:30 PM EDT Visit (SP) Office Gynecology Oncology [address] [place] [address] [place] [address] Josefina Perdue, PRODUCT SUPPORT REP.MANAGER COMMODITIES [address] [place] [address] PLEASE RESCHEDULE PALL MED 07/11/2025 2:00 PM EDT Infusion Center Hematology/Oncology [address] [place] [address] [place] [address] follow up keytruda 10/02/2025 2:30 PM EST [facility] Palliative Medicine [address] [facility] [place] [address] Sarita Barrera, PRODUCT SUPPORT REP.MANAGER COMMODITIES [address] [place] [address] 3 MONTH VV documented as of this encounter Visit Diagnoses Not on filedocumented in this encounter Care Teams Child Support Agent Relationship Specialty Start Date End Date Arron Vogt DO [address] [place] [address] PCP - General Family Medicine 09/22/22 Peggy Perez MD [address] [place] [address] Physician Gynecology 10/28/22 Radha Perez LSW Metal Caster 11/04/22 Josefina Perdue, PRODUCT SUPPORT REP.MANAGER COMMODITIES [address] [place] [address] Nurse Practitioner Gynecology 11/30/24 Alona Stephens, RN [address] [facility] [place] [address] Specialty Home Care Giver Hematology/Oncology 11/30/[address] [facility] [place] [address] Registered Dietitian Nutrition 12/06/24 Giovany Killian, RN Specialty Home Care Giver Hospice & Palliative Medicine 03/27/25 Sarita Barrera, PRODUCT SUPPORT REP.MANAGER COMMODITIES [address] [facility] [address] Hospice & Palliative Medicine 03/27/25 documented as of this encounter
--- OUTSIDE RECORDS SUMMARY | 2025-07-11 08:56 | XMS_ITS | Encounter Summary ---
Author Organization [facility] Address [facility] [place] [address] Care Team Providers Care Cost Reduction Engineer Name Role Phone MalcolmArron streeter Edgar NEGRON Primary Care Provider [phone] Peggy Perez MD Unavailable [phone] Radha Perez CHIEF DIGITAL MEDIA OFFICER Unavailable Unavailable Josefina Perdue BRICKLAYER.ENVIRONMENTAL LAWYER Unavailable Unavai Alona Tran RN Unavailable [phone] Unavailable [phone] Giovany Killian RN Unavailable Unava ilSarita Vallejo BRICKLAYER.ENVIRONMENTAL LAWYER Unavailable + Source Comments In the event this information is protected by the Federal Confidentiality of Alcohol and Drug AbusePatient Records regulations: The Federal rules restrict any use of the information to criminally investigate or prosecute any alcohol or drug abuse patient.[facility] Encounter Details Date Type Department Care Team (Late st Contact Info) Description 04/10/2025 Patient Msg Gynecology Oncology [address] [place] [address] Josefina Perdue BRICKLAYER.ENVIRONMENTAL LAWYER [address] [place] [address] genetics Social History Tobacco Use Types Packs/Day Years [...] is lower risk 3 02/18/2023 Data from: https://www.neighborhoodatlas.medicine.[facility].edu/. Last address used for calculation [address] 02/18/2023 Comments No Sex and Gender Information Value Date Recorded Sex Assigned at Not on file Legal Sex Female 8:38 AM EST Gender Identity Not on file Sexual Orientation Not on file documented as of this encounter Plan of Treatment Upcoming Encounters Date Type Department Care Team (Late st Contact Info) Description 07/11/2025 1:30 PM EDT Visit (SP) Office Gynecology Oncology [address] [place] [address] [place] [address] Josefina Perdue, BRICKLAYER.ENVIRONMENTAL LAWYER [address] [place] [address] PLEASE RESCHEDULE PALL MED 07/11/2025 2:00 PM EDT Infusion Center Hematology/Oncology [address] [facility] [address] follow up keytruda 10/02/2025 2:30 PM EST [facility] Palliative Medicine Tarun [facility] [place] [address] Sarita Barrera, BRICKLAYER.ENVIRONMENTAL LAWYER [address] [place] [address] 3 MONTH VV documented as of this encounter Visit Diagnoses Not on filedocumented in this encounter Care Teams Cost Reduction Engineer Relationship Specialty Start Date End Date Arron Vogt DO [address] [place] [address] PCP - General Family Medicine 09/22/22 Peggy Perez MD [address] [place] [address] Physician Gynecology 10/28/22 Radha Perez LSW Assistant Refinery Operator 11/04/22 Josefina Perdue, BRICKLAYER.ENVIRONMENTAL LAWYER [address] [place] [address] Nurse Practitioner Gynecology 11/30/24 Alona Stephens, RN [address] [facility] [place] [address] Specialty Textiles Sales Representative Hematology/Oncology 11/30/[address] [place] [address] [place] [address] Registered Dietitian Nutrition 12/06/24 Giovany Killian, RN Specialty Textiles Sales Representative Hospice & Palliative Medicine 03/27/25 Sarita Barrera, BRICKLAYER.ENVIRONMENTAL LAWYER [address] [facility] [place] [address] Hospice & Palliative Medicine 03/27/25 documented as of this encounter
--- OUTSIDE RECORDS SUMMARY | 2025-07-11 08:56 | XMS_ITS | Clinical Summary ---
Author Organization [facility] Healthcare Address [address] [place] [address] Care Team Providers Care Loaf Counter Name Role Phone MalcolmsylArron DO Primary Care Provider [phone] Allergies Active Allergy Reactions Criticality Noted Date Comments Diphenhydramine Anxiety Low 02/26/2025 Medications Calcium Carbonate-Vitami n D 600-5 MG-MCG tablet Take 1 tablet by mouth in the morning and 1 tablet in the evening. 2 Active Potassium 99 MG tablet Take by mouth Active gabapentin (Neurontin) 300 MG capsule Take by mouth 5 09/27/20 25 Active morphine CR (MS Contin) 15 MG 12 hr tablet Take 15 mg by mouth in the morning and 15 mg in the evening. 5 Active ondansetron (Zofran) 8 MG tablet Take 8 mg by mouth every 8 (eight) hours if needed 5 Active oxyCODONE (Roxicodone) 10 MG immediate release tablet PRN 5 Active Mag-G 500 (27 Mg) MG tablet Take 500 mg by mouth in the morning and 500 mg in the evening. 5 01/18/20 26 Active meloxicam (Mobic) 15 MG tabletIndication s:Left knee pain, unspecified chronicity Take 1 tablet (15 mg) by mouth Daily With food. 30 tablet 2 07/08/07/20 25 Active ibuprofen 800 MG tablet TAKE 1 TABLET BY MOUTH THREE TIMES DAILY NEEDED WITH FOOD FOR PAIN Active pantoprazole (ProtoNix) 20 MG EC tablet Take 20 mg by mouth in the morning. Active benzonatate (Tessalon) 100 MG capsule Take 100 mg by mouth 3 (three) times a day as needed for cough Do not crush or chew. Active prochlorperazine (Compazine) 5 MG tablet Take by mouth every 6 (six) hours if needed for nausea or vomiting Active Active Problems No known active problems Resolved Problems Problem Noted Date Diagnosed Date Resolved Date Endometrial thickening on ultrasound 07/07/2023 07/07/2023 Postmenopausal bleeding 07/07/202306/12 Adenocarcinoma of endometrium 10/28/2022 07/07/2023 Obesity, Class III, BMI 40-4 9.9 (morbid obesity) 10/07/2022 07/07/2023 Encounters Date Type Department Care Team Description 06/22/2025 8:15 AM EDT Office Visit [facility] [address] [place] [phone] Jeanmarie Ellis DO Primary localized osteoarthritis of right hip (Primary Dx) 06/22/2025 Bamboo flowsheet [facility] [address] [facility] [address] [place] [phone] Jeanmarie Ellis DO 06/22/2025 Travel 06/21/2025 Travel 05/09/2025 Orders Only [facility] [address] [place] [phone] Allie Campbell MA Left knee pain, unspecified chronicity (Primary Dx) from Last 3 Months Family History Medical History Relation Name Comments Hypertension Mother hardy benavides Relation Name Status Comments Daughter Alive Father Alive Mother hardy benavides Alive Sister 2 Son 1 Alive Son 2 Alive Son 3 Alive Social History Tobacco Use Types Packs/Day Years Used Date Smoking Tobacco: Former Cigarettes 0.3 10 0 03/11/1996 - 03/11/2006 Smokeless Tobacco: Never Tobacco Cessation:Counseling Given: Not Answered Alcohol Use Standard Drinks/Week Comments Not Currently 0 (1 standard drink = 0.6 oz pure alcohol) Caffeine:1-2 cups per day tea Comments Unknown Sex and Gender Information Value Date Recorded Sex Assigned at Not on file Legal Sex Female 6:40 PM EDT Gender Identity Not on file Sexual Orientation Not on file Last Filed Vital Signs Vital Sign Reading Time Taken Comments Blood Pressure 146/92 09/02/2022 12:00 PM EST Pulse - - Temperature 36.2 C (97.1 F) 10/05/2023 9:52 AM EST Respiratory Rate - - Oxygen Saturation - - Inhaled Oxygen Concentration - - Weight 128 kg (283 lb) 06/22/2025 8:04 AM EDT Height 176.5 cm (5' 9.5 ) 06/22/2025 8:04 AM EDT Body Mass Index 41.19 06/22/2025 8:04 AM EDT Plan of Treatment Upcoming Encounters Date Type Department Care Team (Late st Contact Info) Description 08/08/2025 8:45 AM EDT Office Visit [facility] [address] [facility] [address] [place] [address] Jeanmarie Ellis, DO [address] [facility] [place] [address] Insurance BCBS Care Teams Loaf Counter Relationship Specialty Start Date End Date Arron Vogt DO [address] [place] [address] PCP - General Family Medicine 06/20/25
--- OUTSIDE RECORDS SUMMARY | 2025-07-11 08:57 | XMS_ITS | Encounter Summary ---
Author Organization [facility] Address [address] [place] [address] Care Team Providers Care Whiting Machine Operator Name Role Phone Carson Andreia DATA TYPIST Unavailable [phone] Arron Vogt DO Primary Care Provider [phone] Alona Stephens RN Unavailable [phone] Peggy Perez MD Unavailable [phone] Jazlyn Wells WEB CONTENT MANAGER.FLIGHT/TRANSPORT NURSE Unavailable [phone] Radha Perez Unavailable Unavailable Josefina Perdue WEB CONTENT MANAGER.FLIGHT/TRANSPORT NURSE Unavailable Unavai Alona Tran RN Unavailable [phone] Unavailable [phone] Giovany Killian RN Unavailable Unava ilSarita Vallejo WEB CONTENT MANAGER.FLIGHT/TRANSPORT NURSE Unavailable + Source Comments In the event this information is protected by the Federal Confidentiality of Alcohol and Drug AbusePatient Records regulations: The Federal rules restrict any use of the information to criminally investigate or prosecute any alcohol or drug abuse patient.[facility] Encounter Details Date Type Department Care Team (Late st Contact Info) Description 09/11/2022 Lab Requisition [facility] [address] [place] [address] Peggy Perez MD [address] [place] [address] Person encountering health services to consult on behalf of another person Social History Tobacco Use Types Packs/Day Years Used Date Smoking Tobacco: Never Assessed Comments Unknown Sex and Gender Information Value Date Recorded Sex Assigned at Not on file Legal Sex Female 8:38 AM EST Gender Identity Not on file Sexual Orientation Not on file documented as of this encounter Plan of Treatment Upcoming Encounters Date Type Department Care Team (Late st Contact Info) Description 07/11/2025 1:30 PM EDT Visit (SP) Office Gynecology Oncology [address] [place] [address] [place] [address] Josefina Perdue, WEB CONTENT MANAGER.FLIGHT/TRANSPORT NURSE [address] [place], [place] [phone] PLEASE RESCHEDULE PALL MED 07/11/2025 2:00 PM EDT [facility] Center Hematology/Oncology [address] [place] [address] [place] [address] follow up keytruda 10/02/2025 2:30 PM EST [facility] Palliative Medicine [address] [place] [address] [place] [address] Sarita Barrera, WEB CONTENT MANAGER.FLIGHT/TRANSPORT NURSE [address] [place] [address] 3 MONTH VV documented as of this encounter Procedures Procedure Name Priority Date/Time Associated Diagnosis Comments OUTSIDE SURG PATH SLIDE REVIEW Routine 09/11/2022 1:20 PM EST Person encountering health services to consult on behalf of another person documented in this encounter Results * OUTSIDE SURG PATH SLIDE REVIEW (09/11/2022 1:20 PM EST) Case Report Surgical Pathology Report Case: [id number] Authorizing Provider: Peggy Perez MD Collected: 09/11/2022 01:20 PM Ordering Location: [facility] Main Received: 09/11/2022 01:21 PM Pathologist: Rikki Collier MD Specimen: SLIDE(S), 2 SLIDES, [id number] 09/17/2022 12:21 PM EST [facility] FINAL DIAGNOSIS [facility]; [place], [place] ([id number], 09/02/2022) A. Endometrium, biopsy, - High nuclear grade adenocarcinoma (see comment). JKM/LAD 09/14/2022 09/17/2022 12:21 PM EST [facility] at 1352 EST Diagnosis Comment We will attempt to obtain a paraffin block for p53 and p16 immunohistochemis try, which will be reported in an addendum. This case was reviewed at the gynecologic pathology consensus conference on 09/14/[address] Flores concurs with a high nuclear grade adenocarcinoma pending additional work-up. 09/17/2022 12:21 PM EST [facility] Performing Lab Diagnostic interpretation performed at [facility], [address] [place] [address]# [id number] Logistics Administrator: Luis Mike M.D. 09/17/2022 12:21 PM EST [facility] Addendum Addendum Subtype Update Endometrium, biopsy: - High nuclear grade adenocarcinoma, favor serous subtype. JCAMILLA 09/17/2022 Addendum comment A paraffin block was obtained and additional immunostains were performed at the [facility] in the evaluation of this tumor, utilizing antibodies for p16 and p53. P16 shows strong block staining, while p53 shows a null phenotype (mutation type pattern). These features strongly suggest serous carcinoma subtype. 09/17/2022 12:21 PM EST [facility] Addendum electronically signed by Rikki Collier MD on 09/17/2022 at 1221 EST Blocks or Slides MICROSCOPE SLIDE / Unknown 09/11/2022 1:20 PM EST 09/11/2022 1:21 PM EST us Peggy Perez MD SURGICAL PATHOLOGY Edit ed Result - Final [facility] [address] [facility] [address] [place] [address], documented in this encounter Visit Diagnoses Diagnosis Person encountering health services to consult on behalf of another person Other person consulting on behalf of another person documented in this encounter Care Teams Whiting Machine Operator Relationship Specialty Start Date End Date Arron Vogt DO [address] [place] [address] PCP - General Family Medicine 09/22/22 Andreia Byrd LISW [address] [place] [phone] Director Of Strategic Partnerships 09/21/22 09/21/22 Alona Stephens RN [address] [place] [address] [place] [address] Specialty Pluck Separator Hematology/Oncology 10/28/22 03/02/24 Peggy Perez MD [address] [place] [phone] Physician Gynecology 10/28/22 Jazlyn Wells, NO.FLIGHT/TRANSPORT NURSE [address] [place] [phone] Nurse Practitioner Gynecology 10/28/22 11/29/24 Radha Perez LSW Director Of Strategic Partnerships 11/04/22 Josefina Perdue, NO.FLIGHT/TRANSPORT NURSE [address] [place] [id number] Nurse Practitioner Gynecology 11/30/24 Alona Stephens RN [address] [facility] [place] [address] Specialty Pluck Separator Hematology/Oncology 11/30/[address] [place] [address] [place] [address] Registered Dietitian Nutrition 12/06/24 Giovany Killian, RN Specialty Pluck Separator Hospice & Palliative Medicine 03/27/25 Sarita Barrera, WEB CONTENT MANAGER.FLIGHT/TRANSPORT NURSE [facility] [place] [phone] Hospice & Palliative Medicine 03/27/25 documented as of this encounter
--- OUTSIDE RECORDS SUMMARY | 2025-07-11 08:57 | XMS_ITS | Encounter Summary ---
Author Organization [facility] Address [address] [place] [address] Care Team Providers Care Aircraft Rigging And Controls Mechanic Name Role Phone MalcolmArron streeter Edgar NEGRON Primary Care Provider [phone] Peggy Perez MD Unavailable [phone] Radha Perez CAR CHASER Unavailable Unavailable Josefina Perdue COPRA SAMPLER.CIRCULATION CREW LEADER Unavailable Unavai Alona Tran RN Unavailable [phone] Unavailable [phone] Giovany Killian RN Unavailable Unava ilSarita Vallejo COPRA SAMPLER.CIRCULATION CREW LEADER Unavailable + Source Comments In the event this information is protected by the Federal Confidentiality of Alcohol and Drug AbusePatient Records regulations: The Federal rules restrict any use of the information to criminally investigate or prosecute any alcohol or drug abuse patient.[facility] Reason for Visit * Reason Comments First Time Treatment Education Encounter Details Date Type Department Care Team (Late st Contact Info) Description 07/09/2025 Education Hematology/Oncology [address] [place] [address] Alona Stephens RN [address] [facility] [place] [address] First Time Treatment Education Social History Tobacco Use Types Packs/Day Years [...] risk 3 02/18/2023 Data from: https://www.neighborhoodatlas.medicine.[facility]/. Last address used for calculation [address] 02/18/2023 Comments No Sex and Gender Information Value Date Recorded Sex Assigned at Not on file Legal Sex Female 8:38 AM EST Gender Identity Not on file Sexual Orientation Not on file documented as of this encounter Progress Notes * Alona Stephens, RN - 07/09/2025 3:43 PM EDT ORAL ANTI-CANCER AGENTS EDUCATION patient here today for oral medication education of lenvatinib (Lenvima) for Endometrial Cancer Anticipated/Scheduled start date: 07/13/25 READINESS TO LEARN Cognitive Ability: Alert and oriented Motivation to Learn: Interested Family Support: High - Very involved in pt care Instruction Provided to: Patient Patient learns best by: Multiple Methods Factors affecting learning: None Physical limitation affecting learning: None ALVARADO ASSESSMENT: 1.) Verified that patient knows that the oral agents are for cancer and are taken by mouth. Yes 2.) Medication review completed during visit. Yes 3.) Patient is able to swallow pills. Yes 4.) Patient is able to read the drug label/information. Yes 5.) Patient is able to open the medication bottles and packages. Yes 6.) Has patient taken other pills for cancer? No 7.) Is patient experiencing any symptoms that would affect their ability to keep down pills, for example nausea or vomiting? No 8.) Verified that patient understands prescription delivery, benefit investigation and refill process. Yes Pt received medication from [facility] pharmacy. Pt states she wants to wait and start taking it on Wednesday. DRUG-SPECIFIC EDUCATION: 1.) Verified patient knows the drug name. Yes 2.) Verified patient understands the dose and schedule of oral anti cancer agent. Yes 3.) Verified patient knows what to do if a medication dose is missed. Yes 4.) Verified patient understands where to store the drug. Yes 5.) Verified patient understands potential side effects and how to manage them. Yes 6.)Verified patient understands handling precautions of oral anti cancer agent. Yes 7.) Verified patient was given written instructions and understands when and whom to call with questions. Yes 8.) Verified patient understands where and how to return drug. Yes 9.) Verified patient received drug specific adult education handout and neutropenic wallet card Yes EVALUATE: The patient demonstrated an understanding of all the above education using the teach-back method. Yes Instructed to call us with any questions, concerns, and/or unresolved symptoms. Will continue to follow up and provide reinforcement of teaching topics as needed. Alona Stephens, RN documented in this encounter Plan of Treatment Upcoming Encounters Date Type Department Care Team (Late st Contact Info) Description 07/11/2025 1:30 PM EDT Visit (SP) Office Gynecology Oncology [address] [place] [address] [place] [address] Josefina Perdue APRN.CIRCULATION CREW LEADER [address] [place], [place] [phone] PLEASE RESCHEDULE PALL MED 07/11/2025 2:00 PM EDT Infusion Center Hematology/Oncology [address] [place] [address] [place] [address] follow up keytruda 10/02/2025 2:30 PM [facility] Palliative Medicine Tarun [facility] [place] [address] Sarita Barrera, COPRA SAMPLER.CIRCULATION CREW LEADER [address] [place] [address] 3 MONTH VV documented as of this encounter Visit Diagnoses Diagnosis Papillary serous endometrial adenocarcinoma (HCC)- Primary Malignant neoplasm of corpus uteri, except isthmus documented in this encounter Care Teams Aircraft Rigging And Controls Mechanic Relationship Specialty Start Date End Date Arron Vogt DO [facility] [place] [address] PCP - General Family Medicine 09/22/22 Peggy Perze MD [address] [place] [address] Physician Gynecology 10/28/22 Radha Perez LSW Gravity Prospector 11/04/22 Josefina Perdue, NO.CIRCULATION CREW LEADER [address] [place] [address] Nurse Practitioner Gynecology 11/30/24 Alona Stephens RN [address] [facility] [place] [address] Specialty Welt Pocket Machine Operator Hematology/Oncology 11/30/[address] [place], [place] [address] [address] Registered Dietitian Nutrition 12/06/24 Giovany Killian, RN Specialty Welt Pocket Machine Operator Hospice & Palliative Medicine 03/27/25 Sarita Barrera, COPRA SAMPLER.CIRCULATION CREW LEADER [facility] [place] [address] Hospice & Palliative Medicine 03/27/25 documented as of this encounter
--- OUTSIDE RECORDS SUMMARY | 2025-07-11 08:57 | XMS_ITS ---
Author Organization [facility] Address [address] [place] [address] Care Team Providers Care Cylinder Inspector And Tester Name Role Phone Arron Vogt Primary Care Provider [phone] Peggy Perez MD Unavailable [phone] Radha Perez ASSISTANT DIRECTOR OF PUBLIC WORKS Unavailable Unavailable Josefina Perdue GROUND PRODUCTS DIRECTOR.CORPORATE FITNESS PROGRAM COORDINATOR Unavailable Unavai Alona Tran RN Unavailable [phone] Unavailable [phone] Giovany Killian RN Unavailable Unava Sarita Urbina GROUND PRODUCTS DIRECTOR.CORPORATE FITNESS PROGRAM COORDINATOR Unavailable + Active Problems Problem Noted Date Diagnosed Date Papillary serous endometrial adenocarcinoma 10/11 Obesity, Class III, BMI >= 40 10/07/2022 Current Treatment and Therapy Plans AMB PEMBROLIZUMAB 200MG - Q21D* Plan Start Date:04/11/2025 Plan Provider:Peggy Perez MD Linked Problems Papillary serous endometrial adenocarcinoma (HCC) Treatment Medications Current Day (Day 1 , Cycle 5 - Planned for 07/11/2025) Next Day (Day 1, Cycle 6 - Planned for 08/01/2025) pembrolizumab IV infusion (KEYTRUDA) pembrolizumab 200 mg in NaCl 0.9% 58 mL (KEYTRUDA) pembrolizumab 200 mg in NaCl 0.9% 58 mL (KEYTRUDA) Past Treatment and Therapy Plans ENVIRONMENTAL SERVICES ASSISTANT/ONC Plan Name Start Date Discontinue Date Treatment Medications Discontinue Reason Plan Provider Cycles AMB PEMBROLIZUMAB 200 PACLITAXEL 175 CARBOPLATIN 5 D1- Q21D 5 04/10/2025 CARBOplatin iv piggyback (PARAPLATIN)PA CLitaxel (TAXOL)PACLita xel iv piggyback in 500 mL (TAXOL)palonos etron (ALOXI)pembrol izumab IV infusion (KEYTRUDA) Treatment Complete Peggy Perez MD 6 of 12 cycles started AMB PACLITAXEL 175 D1 CARBOPLATIN 6 D1 - Q21D 3 04/16/2023 CARBOplatin iv piggyback (PARAPLATIN)PA CLitaxel iv piggyback (TAXOL)palonos etron (ALOXI) Other Peggy Perez MD 3 of 8 cycles started
--- NOTE | 2025-07-11 09:03 | XR_ITS ---
The [address] [address] Patient Name: MANISHA RUTLEDGE MRN: [id number] date: 1960 Sex: F Assigned Patient Location: [facility] Current Patient Location: [facility] Accession/Order Number: [id number] Exam Date: 07/11/2025 09:15 Report Date: 07/11/2025 10:49 At the request of: AMNA HERNÁNDEZ DPCharity Procedure: XR foot WILDA min 3V BILATERAL FEET - 3 views each COMPARISON: None CLINICAL DATA: Chronic bilateral foot pain. Right hallux valgus deformity. Weightbearing AP, lateral and oblique views were obtained. There is mild hallux valgus deformity on the right. There is lateral deviation of the second and third toes on that side with subluxation at the metatarsal phalangeal joints. There is also potential subtle lateral subluxation of the proximal phalanx of the third toe on the left. There is flexion at the proximal interphalangeal joints of the second through fourth toes on the left which might be hammertoe deformity. No acute fractures or dislocation are identified. No soft tissue swelling is seen. XR/XR foot WILDA min 3V IMPRESSION: HALLUX VALGUS DEFORMITY ON THE RIGHT WITH ASSOCIATED METATARSAL PHALANGEAL JOINT SUBLUXATIONS AT THE SECOND AND THIRD TOES. SUSPECTED HAMMERTOE DEFORMITIES ON THE LEFT. NO ACUTE BONY FINDINGS. Impression dictated by: Ludmila Selby M.D. 07/11/2025 10:49 AM Dictation Location: [place] [address] Electronically authenticated by: [id number] Y Date: 07/11/2025 10:49
== END 2025-07-11 08:48 | disposition home or self-care (01) ==
LOC: RAD 08:53
PROVIDERS: PCP Family Medicine; Visit Provider Podiatrist Foot & Ankle Surgery
DX: M79.672 Pain in left foot (principal); M20.11 Hallux valgus (acquired), right foot; M20.42 Other hammer toe(s) (acquired), left foot
CPT/HCPCS: 73630